=== PATIENT | female | born 1960 | race African-American/Black ===

== ENCOUNTER → 2016-12-08 | Outpatient (CLI) | payer OTHER ==
--- NOTE | 2016-12-08 16:57 | WOMENS IMAGING REPORT ---
EXAM DESCRIPTION: BILAT DIAGNOSTIC MAMMO W/CAD; U/S BREAST UNILAT LIMITED COMPLETED DATE/TIME: 12/08/2016 4:35 pm; 12/08/2016 2:03 pm REASON FOR STUDY: N64.52; RT BREAST DISCHARGE N64.52 NIPPLE DISCHARGE bloody nipple discharge COMPARISON: Mammograms 10/14/2008 TECHNIQUE: Standard craniocaudal and mediolateral oblique views of each breast recorded using digita l acquisition. Additional right breast 90 mediolateral view, right breast cone compression in the retroareolar nancy on, and right breast ultrasound were performed. LIMITATIONS: None. FINDINGS: RIGHT BREAST MASSES: No suspicious masses. CALCIFICATIONS: No new or suspicious calcifications. ARCHITECTURAL DISTORTION: None. DEVELOPING DENSITY: None. ASYMMETRY: None noted. OTHER: No other significant findings. LEFT BREAST MASSES: No suspicious masses. CALCIFICATIONS: No new or suspicious calcifications. ARCHITECTURAL DISTORTION: None. DEVELOPING DENSITY: None. ASYMMETRY: None noted. OTHER: No other significant finding. Read with the assistance of CAD: .[facility] - R2 Cenova Version 1.3 .[facility] Imaging - R2 Cenova Version 1.3 .[facility] Imaging - R2 Cenova Version 2.4 .[facility] - R2 Cenova Version 2.4 .[facility] - R2 Missile Technician Version 9.2 Right breast ultrasound: Patient presents with bloody right nipple discharge. Few retroareolar ducts are identified without f illing defects worrisome for papilloma. No discrete solid lesions in the right retroareolar region. IMPRESSION: Negative right breast mammogram and ultrasound in the setting of bloody nipple discharge . Patient requires further imaging, either with ductogram for bilateral breast MRI with contrast. No mammographic evidence malignancy left breast. BREAST DENSITY: c. The breasts are heterogeneously dense, which may obscure small masses. BIRAD: 0 Incomplete: Needs additional imaging evaluation and/or prior mammograms for comparison. RECOMMENDATION: RECOMMENDED FOLLOW UP: The patient either needs a bilateral breast MRI, or a right b reast ductogram while the patient is still able to express bloody nipple discharge. Please call [facility] at at [phone] and ask for Lio or Shahana to schedule the ductogram. SPECIFIC INTERVENTION/IMAGING/CONSULTATION RECOMMENDED:As above COMMUNICATION:Patient notified by letter COMMENT: The patient has been notified of the results by letter per SA requirements. Additional no tification policies are in place for contacting patient with suspicious or incomplete findings. Quality ID #[id number]: The [employer] recommends an annual screening mammogram for women aged 40 years or over. This facility utilizes a reminder system to ensure that all patients receive reminder letters, and/or direct phone calls for appointments. This includes reminders for routine scr eening mammograms, diagnostic mammograms, or other Breast Imaging Interventions when appropriate. Th is patient will be placed in the appropriate reminder system. The [employer] (ACR) has developed recommendations for screening MRI of the breast s in certain patient populations, to be used in conjunction with mammography. Breast MRI surveillanc e may be appropriate for women with more than 20% lifetime risk of developing breast cancer as deter mined by genetic testing, significant family history of the disease, or history of mantle radiation f or Hodgkins Disease. ACR Practice Guidelines 2008. TECHNICAL DOCUMENTATION: FINDING NUMBER: (1) ASSESSMENT: (1) JOB ID: [id number] [employer]- All Rights Reserved
--- NOTE | 2016-12-08 16:57 | WOMENS IMAGING REPORT ---
EXAM DESCRIPTION: BILAT DIAGNOSTIC MAMMO W/CAD; U/S BREAST UNILAT LIMITED COMPLETED DATE/TIME: 12/08/2016 4:35 pm; 12/08/2016 2:03 pm REASON FOR STUDY: N64.52; RT BREAST DISCHARGE N64.52 NIPPLE DISCHARGE bloody nipple discharge COMPARISON: Mammograms 10/14/2008 TECHNIQUE: Standard craniocaudal and mediolateral oblique views of each breast recorded using digita l acquisition. Additional right breast 90 mediolateral view, right breast cone compression in the retroareolar nancy on, and right breast ultrasound were performed. LIMITATIONS: None. FINDINGS: RIGHT BREAST MASSES: No suspicious masses. CALCIFICATIONS: No new or suspicious calcifications. ARCHITECTURAL DISTORTION: None. DEVELOPING DENSITY: None. ASYMMETRY: None noted. OTHER: No other significant findings. LEFT BREAST MASSES: No suspicious masses. CALCIFICATIONS: No new or suspicious calcifications. ARCHITECTURAL DISTORTION: None. DEVELOPING DENSITY: None. ASYMMETRY: None noted. OTHER: No other significant finding. Read with the assistance of CAD: .[facility] - R2 Cenova Version 1.3 .[facility] Imaging - R2 Cenova Version 1.3 .[facility] Imaging - R2 Cenova Version 2.4 .[facility] - R2 Cenova Version 2.4 .[facility] - R2 Sugar Drier Version 9.2 Right breast ultrasound: Patient presents with bloody right nipple discharge. Few retroareolar ducts are identified without f illing defects worrisome for papilloma. No discrete solid lesions in the right retroareolar region. IMPRESSION: Negative right breast mammogram and ultrasound in the setting of bloody nipple discharge . Patient requires further imaging, either with ductogram for bilateral breast MRI with contrast. No mammographic evidence malignancy left breast. BREAST DENSITY: c. The breasts are heterogeneously dense, which may obscure small masses. BIRAD: 0 Incomplete: Needs additional imaging evaluation and/or prior mammograms for comparison. RECOMMENDATION: RECOMMENDED FOLLOW UP: The patient either needs a bilateral breast MRI, or a right b reast ductogram while the patient is still able to express bloody nipple discharge. Please call [facility] at at [phone] and ask for Lio or Shahana to schedule the ductogram. SPECIFIC INTERVENTION/IMAGING/CONSULTATION RECOMMENDED:As above COMMUNICATION:Patient notified by letter COMMENT: The patient has been notified of the results by letter per SA requirements. Additional no tification policies are in place for contacting patient with suspicious or incomplete findings. Quality ID #[id number]: The [employer] recommends an annual screening mammogram for women aged 40 years or over. This facility utilizes a reminder system to ensure that all patients receive reminder letters, and/or direct phone calls for appointments. This includes reminders for routine scr eening mammograms, diagnostic mammograms, or other Breast Imaging Interventions when appropriate. Th is patient will be placed in the appropriate reminder system. The [employer] (ACR) has developed recommendations for screening MRI of the breast s in certain patient populations, to be used in conjunction with mammography. Breast MRI surveillanc e may be appropriate for women with more than 20% lifetime risk of developing breast cancer as deter mined by genetic testing, significant family history of the disease, or history of mantle radiation f or Hodgkins Disease. ACR Practice Guidelines 2008. TECHNICAL DOCUMENTATION: FINDING NUMBER: (1) ASSESSMENT: (1) JOB ID: [id number] [employer]- All Rights Reserved
== END ==
LOC: WI 12:50
PROVIDERS: ATTEND Obstetrics & Gynecology
DX: N64.52 Nipple discharge (principal)
CPT/HCPCS: 76642; G0204; 77066

== ENCOUNTER 2017-08-26 08:37 | Emergency (ER) | payer OTHER ==
[2017-08-26] MEDS ORDERED: IPRATROPIUM/ALBUTEROL 0.5-2.5 MG/3 ML AMPUL NEB ONE (09:38)
--- NOTE | 2017-08-26 10:12 | RADIOLOGY REPORT (SQ) ---
EXAM DESCRIPTION: CHEST PA/LAT COMPLETED DATE/TIME: 08/26/2017 9:59 am REASON FOR STUDY: sob COMPARISON: Chest films 03/04/2013, 07/31/2014, 05/18/2015 EXAM PARAMETERS: NUMBER OF VIEWS: two views TECHNIQUE: Digital Frontal and Lateral radiographic views of the chest acquired. RADIATION DOSE: NA LIMITATIONS: none FINDINGS: LUNGS AND PLEURA: No opacities, masses or pneumothorax. No pleural effusion. MEDIASTINUM AND HILAR STRUCTURES: No masses or contour abnormalities. HEART AND VASCULAR STRUCTURES: Heart normal size. No evidence for failure. BONES: No acute findings. HARDWARE: None in the chest. OTHER: No other significant finding. IMPRESSION: NO SIGNIFICANT RADIOGRAPHIC FINDING IN THE CHEST. TECHNICAL DOCUMENTATION: JOB ID: [id number] [employer]- All Rights Reserved Reading location - IP/workstation name: [email or web address]
[2017-08-26] MEDS ORDERED: ALBUTEROL SULFATE HFA (90 MCG/PUFF) 8 GM MDI (1 MDI/ER DISP) IH ONE (10:31)
[2017-08-26] MEDS ORDERED: AZITHROMYCIN 250 MG TABLET PO ONE (10:31)
[2017-08-26] MEDS ORDERED: PREDNISONE 20 MG TABLET PO ONE (10:31)
--- NOTE | 2017-08-26 10:35 | ER Document Report ---
ED General - General Chief Complaint: Cold Symptoms Stated Complaint: COUGH Time Seen by Provider: 08/26/17 08:48 TRAVEL OUTSIDE OF THE [place] IN LAST 30 DAYS: No - HPI Patient complains to provider of: Cough Notes: Patient coming in for cough or sputum ongoing for approximately 1 week subjective fevers. Patient also states pain with coughing. Pain in her chest. Sharp and achy. Patient resting has no pain in her chest. Patient denies any recent travel denies any hormone replacement. Patient resting comfortably upon my evaluation. - Related Data Allergies/Adverse Reactions: codeine [Codeine] Allergy (Severe, Verified 08/26/17 08:41) hives,difficulty breathing hydromorphone HCl [From Dilaudid] Allergy (Severe, Verified 08/26/17 08:41) chest tight iodine [Iodine] Allergy (Severe, Verified 08/26/17 08:41) Hives morphine [Morphine] Allergy (Severe, Verified 08/26/17 08:41) hives,difficulty breathing povidone-iodine [From Betadine] Allergy (Severe, Verified 08/26/17 08:41) Hives Soap [From Betadine] Allergy (Severe, Verified 08/26/17 08:41) Hives Sulfa (Sulfonamide Antibiotics) Allergy (Severe, Verified 08/26/17 08:41) hives,tight chest aspirin [Aspirin] Allergy (Unknown, Verified 08/26/17 08:41) Hives guaifenesin [From Entex] Allergy (Unknown, Verified 08/26/17 08:41) Hives, chest tightness phenylephrine HCl [From Entex] Allergy (Unknown, Verified 08/26/17 08:41) hives, chest tightness phenylpropanolamine [From Entex] Allergy (Unknown, Verified 08/26/17 08:41) pseudoephedrine tannate [From Entex] Allergy (Unknown, Verified 08/26/17 08:41) seafood Allergy (Severe, Uncoded 08/26/17 08:41) swell,hives,can't breathe Pinapple Allergy (Uncoded 08/26/17 08:41) hives,difficulty breathing watermelon Allergy (Uncoded 08/26/17 08:41) hives,difficulty breathing Past Medical History - Social History Smoking Status: Never Smoker Chew tobacco use (# tins/day): No Frequency of alcohol use: None Drug Abuse: None Family History: Reviewed & Not Pertinent Patient has suicidal ideation: No Patient has homicidal ideation: No - Past Medical History Cardiac Medical History: Denies: Hx Coronary Artery Disease, Hx Heart Attack, Hx Hypertension Pulmonary Medical History: Reports: Hx Bronchitis, Hx Pneumonia Denies: Hx Asthma, Hx COPD Neurological Medical History: Reports: Hx Migraine. Denies: Hx Cerebrovascular Accident, Hx Seizures Renal/ Medical History: Reports: Hx Ectopic . 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, Reports Hx Musculoskeletal Deformity Past Surgical History: Reports: Hx Appendectomy, Hx Cholecystectomy, Hx Hysterectomy, Hx Orthopedic Surgery - left knee scope, Hx Tubal Ligation, Hx Umbilical Hernia - Immunizations Hx Diphtheria, Pertussis, Tetanus Vaccination: Yes Hx Pneumococcal Vaccination: 05/30/11 Review of Systems - Review of Systems Constitutional: No symptoms reported EENT: No symptoms reported Cardiovascular: Chest pain Respiratory: Cough, Short of breath, Wheezing Gastrointestinal: No symptoms reported Genitourinary: No symptoms reported Female Genitourinary: No symptoms reported Musculoskeletal: No symptoms reported Skin: No symptoms reported Hematologic/Lymphatic: No symptoms reported Neurological/Psychological: No symptoms reported -: Yes All other systems reviewed and negative Physical Exam - Vital signs Vitals: Temp Pulse Resp BP Pulse Ox 98.6 F 79 18 135/55 H 96 08/26/17 08:38 08/26/17 08:38 08/26/17 08:38 08/26/17 08:38 08/26/17 08:38 Interpretation: Normal - General General appearance: Appears well, Alert - HEENT Head: Normocephalic, Atraumatic Eyes: Normal Pupils: PERRL - Respiratory Respiratory status: No respiratory distress Chest status: Nontender Breath sounds: Wheezing Chest palpation: Normal - Cardiovascular Rhythm: Regular Heart sounds: Normal auscultation Murmur: No - Abdominal Inspection: Normal Distension: No distension Bowel sounds: Normal Tenderness: Nontender Organomegaly: No organomegaly - Back Back: Normal, Nontender - Extremities General upper extremity: Normal inspection, Nontender, Normal color, Normal ROM , Normal temperature General lower extremity: Normal inspection, Nontender, Normal color, Normal ROM , Normal temperature, Normal weight bearing. No: Marylou's sign - Neurological Neuro grossly intact: Yes Cognition: Normal Orientation: AAOx4 [place] Coma Scale Eye Opening: Spontaneous [place] Coma Scale Verbal: Oriented [place] Coma Scale Motor: Obeys Commands [place] Coma Scale Total: 15 Speech: Normal Motor strength normal: LUE, RUE, LLE, RLE Sensory: Normal - Psychological Associated symptoms: Normal affect, Normal mood - Skin Skin Temperature: Warm Skin Moisture: Dry Skin Color: Normal Course - Re-evaluation Re-evalutation: 08/26/17 14:59 Patient feeling better after bronchodilator therapy. Concerned about underlying bronchitis chest x-ray and EKG does not show critical pathology at this time. Patient will be treated with bronchodilators and steroids and azithromycin. Patient states understanding will be discharged home. - Vital Signs Vital signs: Temp Pulse Resp BP Pulse Ox 98.3 F 71 15 125/64 98 08/26/17 10:45 08/26/17 10:45 08/26/17 10:45 08/26/17 10:45 08/26/17 10:45 Discharge - Discharge Clinical Impression: Bronchitis Condition: Good Disposition: HOME, SELF-CARE Instructions: Bronchitis ([facility]) Additional Instructions: Your chest x-ray does not show any signs of pneumonia. Please take medications as prescribed use your inhaler 2 puffs a very 4 hours for the next 5 days take steroids as prescribed take the Zithromax as prescribed return to ER symptoms worsen. Prescriptions: Azithromycin [Zithromax 250 mg Tablet] 250 mg PO DAILY #4 tablet Prednisone [Deltasone 20 mg Tablet] 2 tab PO DAILY 4 Days tablet Forms: Return to Work Referrals: GWEN HEAD MD [Primary Care Provider] - Follow up as needed
[2017-08-26 10:51] VITALS: BP 125/64
--- NOTE | 2017-08-26 13:45 | EKG REPORT ---
SEVERITY:- BORDERLINE ECG - SINUS RHYTHM BORDERLINE T ABNORMALITIES, ANT-LAT LEADS : Confirmed by: Charlie Sun MD 26-Aug-2017 13:45:00
== END 2017-08-26 10:51 | disposition home or self-care (01) ==
LOC: ER 08:37
DX: J40 Bronchitis, not specified as acute or chronic (principal); R05 Cough; R50.9 Fever, unspecified; R07.9 Chest pain, unspecified
CPT/HCPCS: 93005; 94640; 99283; 71046; 93010; J7512; J3490; J7620

== ENCOUNTER → 2018-08-29 | Outpatient (CLI) | payer OTHER ==
--- NOTE | 2018-08-29 13:43 | WOMENS IMAGING REPORT ---
EXAM DESCRIPTION: BILAT DIAGNOSTIC MAMMO W/CAD; U/S BREAST UNILAT LIMITED COMPLETED DATE/TIME: 08/29/2018 11:39 am; 08/29/2018 1:11 pm REASON FOR STUDY: N64.52 NIPPLE DISCHARGE, N64.4 MASTODYNIA; N64.52 RIGHT BREAST N64.52 NIPPLE DISC HARGE COMPARISON: 12/08/2016 and 10/14/2008. TECHNIQUE: Standard craniocaudal and mediolateral oblique views of each breast recorded using digita l acquisition. Additional true lateral image of the right breast acquired. LIMITATIONS: None. FINDINGS: RIGHT BREAST MASSES: No suspicious masses. CALCIFICATIONS: No new or suspicious calcifications. ARCHITECTURAL DISTORTION: None. DEVELOPING DENSITY: None. ASYMMETRY: None noted. OTHER: No other significant findings. LEFT BREAST MASSES: No suspicious masses. CALCIFICATIONS: No new or suspicious calcifications. ARCHITECTURAL DISTORTION: None. DEVELOPING DENSITY: None. ASYMMETRY: None noted. OTHER: No other significant finding. Read with the assistance of CAD: .[facility] - R2 Cenova Version 1.3 .[facility] Imaging - R2 Cenova Version 2.1 .[facility] Imaging - R2 Cenova Version 2.4 .[facility] - R2 Cenova Version 2.4 .[facility] - R2 Smokehouse Worker Version 9.2 BREAST ULTRASOUND: TECHNIQUE: Static and dynamic grayscale images acquired of the right breast in the specific areas of clinical/mammographic concern. Selected color Doppler images recorded. ELASTOGRAPHY PERFORMED: No. LIMITATIONS: None. FINDINGS: MASS: No mass identified. There are several prominent moderately dilated ducts in the retroareolar a nd anterior breast. Normal glandular tissue. ELASTOGRAPHY CHARACTERISTICS: Not applicable. OTHER: No other significant finding. IMPRESSION: Stable mammographic appearance of both breasts. No worrisome mammographic findings. Ul trasound of the right breast demonstrates several dilated ducts. No discrete mass identified. The p atient has a history of previous ductogram performed at [facility] (03/03/2017) w ith finding of irregular filling defect. Biopsy was subsequently performed at [facility] Modesta nolasco. The patient reportedly has persistent bloody discharge. Given the clinical finding, further evaluation with ductogram and possibly MRI should be considered. BREAST DENSITY: c. The breasts are heterogeneously dense, which may obscure small masses. BIRAD: 0 Incomplete: Needs additional imaging evaluation and/or prior mammograms for comparison. RECOMMENDATION: RECOMMENDED FOLLOW UP: Birads 0: Mammographic and Ultrasound imaging did not solve t he problem. SPECIFIC INTERVENTION/IMAGING/CONSULTATION RECOMMENDED:Based on clinical presentation, consider galac tography and possibly MRI. COMMUNICATION:The imaging findings were not discussed with the patient. Her referring provider has be en notified of the findings. COMMENT: The patient has been notified of the results by letter per SA requirements. Additional no tification policies are in place for contacting patient with suspicious or incomplete findings. Quality ID #225: The [employer] recommends an annual screening mammogram for women aged 40 years or over. This facility utilizes a reminder system to ensure that all patients receive reminder letters, and/or direct phone calls for appointments. This includes reminders for routine scr eening mammograms, diagnostic mammograms, or other Breast Imaging Interventions when appropriate. Th is patient will be placed in the appropriate reminder system. The [employer] (ACR) has developed recommendations for screening MRI of the breast s in certain patient populations, to be used in conjunction with mammography. Breast MRI surveillanc e may be appropriate for women with more than 20% lifetime risk of developing breast cancer as deter mined by genetic testing, significant family history of the disease, or history of mantle radiation f or Hodgkins Disease. ACR Practice Guidelines 2008. TECHNICAL DOCUMENTATION: FINDING NUMBER: (1) ASSESSMENT: (1) JOB ID: [id number] [employer]- All Rights Reserved Reading location - IP/workstation name: [email or web address]
--- NOTE | 2018-08-29 13:43 | WOMENS IMAGING REPORT ---
EXAM DESCRIPTION: BILAT DIAGNOSTIC MAMMO W/CAD; U/S BREAST UNILAT LIMITED COMPLETED DATE/TIME: 08/29/2018 11:39 am; 08/29/2018 1:11 pm REASON FOR STUDY: N64.52 NIPPLE DISCHARGE, N64.4 MASTODYNIA; N64.52 RIGHT BREAST N64.52 NIPPLE DISC HARGE COMPARISON: 12/08/2016 and 10/14/2008. TECHNIQUE: Standard craniocaudal and mediolateral oblique views of each breast recorded using digita l acquisition. Additional true lateral image of the right breast acquired. LIMITATIONS: None. FINDINGS: RIGHT BREAST MASSES: No suspicious masses. CALCIFICATIONS: No new or suspicious calcifications. ARCHITECTURAL DISTORTION: None. DEVELOPING DENSITY: None. ASYMMETRY: None noted. OTHER: No other significant findings. LEFT BREAST MASSES: No suspicious masses. CALCIFICATIONS: No new or suspicious calcifications. ARCHITECTURAL DISTORTION: None. DEVELOPING DENSITY: None. ASYMMETRY: None noted. OTHER: No other significant finding. Read with the assistance of CAD: .[facility] - R2 Cenova Version 1.3 .[facility] Imaging - R2 Cenova Version 2.1 .[facility] Imaging - R2 Cenova Version 2.4 .[facility] - R2 Cenova Version 2.4 .[facility] - R2 Date Night Caregiver Version 9.2 BREAST ULTRASOUND: TECHNIQUE: Static and dynamic grayscale images acquired of the right breast in the specific areas of clinical/mammographic concern. Selected color Doppler images recorded. ELASTOGRAPHY PERFORMED: No. LIMITATIONS: None. FINDINGS: MASS: No mass identified. There are several prominent moderately dilated ducts in the retroareolar a nd anterior breast. Normal glandular tissue. ELASTOGRAPHY CHARACTERISTICS: Not applicable. OTHER: No other significant finding. IMPRESSION: Stable mammographic appearance of both breasts. No worrisome mammographic findings. Ul trasound of the right breast demonstrates several dilated ducts. No discrete mass identified. The p atient has a history of previous ductogram performed at [facility] (03/03/2017) w ith finding of irregular filling defect. Biopsy was subsequently performed at [facility] Modesta nolasco. The patient reportedly has persistent bloody discharge. Given the clinical finding, further evaluation with ductogram and possibly MRI should be considered. BREAST DENSITY: c. The breasts are heterogeneously dense, which may obscure small masses. BIRAD: 0 Incomplete: Needs additional imaging evaluation and/or prior mammograms for comparison. RECOMMENDATION: RECOMMENDED FOLLOW UP: Birads 0: Mammographic and Ultrasound imaging did not solve t he problem. SPECIFIC INTERVENTION/IMAGING/CONSULTATION RECOMMENDED:Based on clinical presentation, consider galac tography and possibly MRI. COMMUNICATION:The imaging findings were not discussed with the patient. Her referring provider has be en notified of the findings. COMMENT: The patient has been notified of the results by letter per SA requirements. Additional no tification policies are in place for contacting patient with suspicious or incomplete findings. Quality ID #225: The [employer] recommends an annual screening mammogram for women aged 40 years or over. This facility utilizes a reminder system to ensure that all patients receive reminder letters, and/or direct phone calls for appointments. This includes reminders for routine scr eening mammograms, diagnostic mammograms, or other Breast Imaging Interventions when appropriate. Th is patient will be placed in the appropriate reminder system. The [employer] (ACR) has developed recommendations for screening MRI of the breast s in certain patient populations, to be used in conjunction with mammography. Breast MRI surveillanc e may be appropriate for women with more than 20% lifetime risk of developing breast cancer as deter mined by genetic testing, significant family history of the disease, or history of mantle radiation f or Hodgkins Disease. ACR Practice Guidelines 2008. TECHNICAL DOCUMENTATION: FINDING NUMBER: (1) ASSESSMENT: (1) JOB ID: [id number] [employer]- All Rights Reserved Reading location - IP/workstation name: [email or web address]
== END ==
LOC: WI 11:12
PROVIDERS: ATTEND Surgery
DX: N64.52 Nipple discharge (principal)
CPT/HCPCS: 76642; 77066

== ENCOUNTER → 2019-02-26 | Outpatient (CLI) | payer OTHER ==
--- NOTE | 2019-02-26 16:20 | RADIOLOGY REPORT (SQ) ---
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 NUMBER OF VIEWS: Five views including obliques. TECHNIQUE: AP, lateral, oblique, and sacral radiographic images acquired of the lumbar spine. LIMITATIONS: None. FINDINGS: MINERALIZATION: Normal. SEGMENTATION: Normal. No transitional anatomy. ALIGNMENT: Normal. VERTEBRAE: Maintained height. No fracture or worrisome bone lesion. DISCS: Preserved height. No significant osteophytes or end plate irregularity. POSTERIOR ELEMENTS: Pedicles and facets are intact. No pars defect or posterior arch defects. HARDWARE: None in the spine. PARASPINAL SOFT TISSUES: Normal. PELVIS: Intact as visualized. No fractures or worrisome bone lesions. SI joints intact. OTHER: No other significant finding. IMPRESSION: NORMAL 5 VIEW LUMBAR SPINE. TECHNICAL DOCUMENTATION: JOB ID: [id number] [employer]- All Rights Reserved Reading location - IP/workstation name: [email or web address]
--- NOTE | 2019-02-26 16:20 | RADIOLOGY REPORT (SQ) ---
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 NUMBER OF VIEWS: Four views. TECHNIQUE: AP, lateral, and both oblique radiographic images acquired of the right knee. LIMITATIONS: None. FINDINGS: MINERALIZATION: Normal. BONES: No acute fracture or dislocation. No worrisome bone lesions. No significant osteophytes. JOINT: No effusion. No chondrocalcinosis. OTHER: No other significant finding. IMPRESSION: NEGATIVE STUDY OF THE RIGHT KNEE. NO EXPLANATION FOR PAIN. TECHNICAL DOCUMENTATION: JOB ID: [id number] [employer]- All Rights Reserved Reading location - IP/workstation name: [email or web address]
--- NOTE | 2019-02-26 16:21 | RADIOLOGY REPORT (SQ) ---
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 NUMBER OF VIEWS: Two views. TECHNIQUE: AP pelvis and additional frog-leg view of the right hip. LIMITATIONS: None. FINDINGS: MINERALIZATION: Normal. RIGHT HIP: No fracture or dislocation. No worrisome bone lesions. No contour deformity. No joint sp jan narrowing. LEFT HIP: No fracture or dislocation. No worrisome bone lesions. PUBIS AND ISCHIUM: No fracture. PELVIS: No fracture. SACRUM: No fracture or dislocation. No worrisome bone lesions. LOWER LUMBAR SPINE: No fracture or dislocation. No worrisome bone lesions. No significant disc disea se. SOFT TISSUES: No findings. OTHER: No other significant finding. IMPRESSION: NEGATIVE STUDY OF THE RIGHT HIP. NO EXPLANATION FOR PAIN. TECHNICAL DOCUMENTATION: JOB ID: [id number] [employer]- All Rights Reserved Reading location - IP/workstation name: [email or web address]
== END ==
LOC: OD 15:26
PROVIDERS: ATTEND Obstetrics & Gynecology
DX: M51.36 Other intervertebral disc degeneration, lumbar region (principal); M16.11 Unilateral primary osteoarthritis, right hip; M17.11 Unilateral primary osteoarthritis, right knee
CPT/HCPCS: 72110

== ENCOUNTER → 2019-06-20 | Outpatient (CLI) | payer OTHER ==
--- NOTE | 2019-06-20 09:08 | RADIOLOGY REPORT (SQ) ---
EXAM DESCRIPTION: CT ABD/PELVIS ORAL ONLY COMPLETED DATE/TIME: 06/20/2019 8:47 am REASON FOR STUDY: R10.9 UNSPECIFIED ABDOMINAL PAIN R10.9 UNSPECIFIED ABDOMINAL PAIN COMPARISON: 05/18/2015 TECHNIQUE: CT scan of the abdomen and pelvis performed with oral contrast and no intravenous contras t. Images reviewed with lung, soft tissue, and bone windows. Reconstructed coronal and sagittal MPR i mages reviewed. All images stored on PACS. All CT scanners at this facility use dose modulation, iterative reconstruction, and/or weight based d osing when appropriate to reduce radiation dose to as low as reasonably achievable (ALARA). [facility]: Dose Right [facility]: CareDose [facility]: Dose Right [facility]: Teradose 4D [facility]: [employer] RADIATION DOSE: CT Rad equipment meets quality standard of care and radiation dose reduction techniq ues were employed. CTDIvol: 28.2 mGy. DLP: 1364 mGy-cm.mGy. LIMITATIONS: None. FINDINGS: LOWER CHEST: No significant findings. No nodules or infiltrates. NON-CONTRASTED LIVER, SPLEEN, ADRENALS: Evaluation limited by lack of IV contrast. No identified sign ificant masses. The patient has developed a 1.3 cm hypoattenuating lesion in the left lobe adjacent to the falciform ligament. Hounsfield units are under 1 consistent with simple cyst. PANCREAS: No masses. No peripancreatic inflammatory changes. GALLBLADDER: Surgically absent. RIGHT KIDNEY AND URETER: No solid masses. No significant calcification. No hydronephrosis or hydroure ter. LEFT KIDNEY AND URETER: No solid masses. No significant calcification. No hydronephrosis or hydrouret er. AORTA AND RETROPERITONEUM: No aneurysm. No retroperitoneal masses or adenopathy. BOWEL AND PERITONEAL CAVITY: No obvious masses or inflammatory changes. No free fluid. APPENDIX: Surgically absent. PELVIS, BLADDER, AND ABDOMINAL WALL: No abnormal pelvic masses. No abdominal wall hernias. Bladder un remarkable. BONES: No significant findings. OTHER: No other significant finding. IMPRESSION: NO SIGNIFICANT OR ACUTE ABDOMINAL PROCESS. TECHNICAL DOCUMENTATION: JOB ID: [id number] Quality ID # [id number]: Final reports with documentation of one or more dose reduction techniques (e.g., Au tomated exposure control, adjustment of the mA and/or kV according to patient size, use of iterative reconstruction technique) 2010 test company- All Rights Reserved Reading location - IP/workstation name: [email or web address]
== END ==
LOC: RAD 08:29
PROVIDERS: ATTEND Surgery
DX: R10.9 Unspecified abdominal pain (principal)
CPT/HCPCS: 74176

== ENCOUNTER → 2019-08-15 | Outpatient (CLI) | payer OTHER ==
--- NOTE | 2019-08-16 11:08 | WOMENS IMAGING REPORT ---
EXAM DESCRIPTION: BILAT DIAGNOSTIC MAMMO W/CAD COMPLETED DATE/TIME: 08/15/2019 10:21 am REASON FOR STUDY: N64.52 NIPPLE DISCHARGE N64.52 NIPPLE DISCHARGE persistent right breast nipple di scharge and pain. Patient has had a prior ductogram with a filling defect which was biopsied at [facility]. Persistent nipple discharge and pain. COMPARISON: 08/29/2018, 12/08/2016 EXAM PARAMETERS: Standard craniocaudal and mediolateral oblique views of each breast recorded using digital acquisition. . Read with the assistance of CAD: .[facility] - [employer] Inspector Version 9.2 LIMITATIONS: None. FINDINGS: RIGHT BREAST MASSES: Mildly dilated subareolar ducts are stable from previous examination. CALCIFICATIONS: Few scattered calcifications are stable. ARCHITECTURAL DISTORTION: None. ASYMMETRY: None noted. OTHER: Biopsy marker and the right upper outer breast is unchanged. LEFT BREAST MASSES: No suspicious masses. CALCIFICATIONS: No new or suspicious calcifications. ARCHITECTURAL DISTORTION: None. ASYMMETRY: None noted. OTHER: No other significant finding. IMPRESSION: No mammographic evidence of malignancy. No significant interval change. If there is pe rsistent nipple discharge from the right breast, further evaluation with ductogram or possibly MRI sh ould be considered. Further management of the patient's pain should be based on clinical evaluation. BREAST DENSITY: b. There are scattered areas of fibroglandular density. BIRAD: ASSESSMENT: 2 Benign findings. RECOMMENDATION: RECOMMENDED FOLLOW UP: Birads 1 or 2: The patient should resume routine screening . SPECIFIC INTERVENTION/IMAGING/CONSULTATION RECOMMENDED:No additional intervention/ imaging/consultati on needed at this time. COMMUNICATION:The negative/benign results were communicated to the patient. COMMENT: The patient has been notified of the results by letter per [place] requirements. Additional no tification policies are in place for contacting patient with suspicious or incomplete findings. Quality ID #225: The [employer] recommends an annual screening mammogram for women aged 40 years or over. This facility utilizes a reminder system to ensure that all patients receive reminder letters, and/or direct phone calls for appointments. This includes reminders for routine scr eening mammograms, diagnostic mammograms, or other Breast Imaging Interventions when appropriate. Th is patient will be placed in the appropriate reminder system. TECHNICAL DOCUMENTATION: FINDING NUMBER: (1) ASSESSMENT: (1) JOB ID: [id number] 2010 [employer]- All Rights Reserved Reading location - IP/workstation name: [email or web address]
== END ==
LOC: WI 11:00
PROVIDERS: ATTEND Surgery
DX: N64.52 Nipple discharge (principal)
CPT/HCPCS: 77066

== ENCOUNTER 2020-03-23 10:47 | Emergency (ER) | payer MEDICARE, OTHER ==
[2020-03-23] MEDS ORDERED: BENZONATATE 100 MG CAPSULE PO ONE (12:07)
[2020-03-23] MEDS ORDERED: IPRATROPIUM/ALBUTEROL 0.5-2.5 MG/3 ML AMPUL NEB ONE ×2 (12:07→16:30)
--- NOTE | 2020-03-23 12:09 | ER Document Report ---
ED Respiratory Problem - General Chief Complaint: Chest Tightness Stated Complaint: CHEST TIGHTNESS Time Seen by Provider: 03/23/20 11:40 Primary Care Provider: GWEN HEAD MD [Primary Care Provider] - Follow up as needed Notes: Patient is a 59-year-old female who presents the emergency department with a chief complaint of chest tightness with a cough. Patient was diagnosed with COVID-19 on March 12. She states that she continues to have a cough. She is not taking anything for the cough. Denies any diarrhea. He said her fevers stopped 2 days ago. She states that she started to have chest tightness 2 days ago when she started coughing. TRAVEL OUTSIDE OF THE [place] IN LAST 30 DAYS: No - Related Data Allergies/Adverse Reactions: codeine [Codeine] Allergy (Severe, Verified 03/23/20 11:50) hives,difficulty breathing hydromorphone HCl [From Dilaudid] Allergy (Severe, Verified 03/23/20 11:50) chest tight iodine [Iodine] Allergy (Severe, Verified 03/23/20 11:50) Hives morphine [Morphine] Allergy (Severe, Verified 03/23/20 11:50) hives,difficulty breathing povidone-iodine [From Betadine] Allergy (Severe, Verified 03/23/20 11:50) Hives Soap [From Betadine] Allergy (Severe, Verified 03/23/20 11:50) Hives Sulfa (Sulfonamide Antibiotics) Allergy (Severe, Verified 03/23/20 11:50) hives,tight chest aspirin [Aspirin] Allergy (Unknown, Verified 03/23/20 11:50) Hives guaifenesin [From Entex] Allergy (Unknown, Verified 03/23/20 11:50) Hives, chest tightness phenylephrine HCl [From Entex] Allergy (Unknown, Verified 03/23/20 11:50) hives, chest tightness phenylpropanolamine [From Entex] Allergy (Unknown, Verified 03/23/20 11:50) pseudoephedrine tannate [From Entex] Allergy (Unknown, Verified 03/23/20 11:50) seafood Allergy (Severe, Uncoded 03/23/20 11:50) swell,hives,can't breathe Pinapple Allergy (Uncoded 03/23/20 11:50) hives,difficulty breathing watermelon Allergy (Uncoded 03/23/20 11:50) hives,difficulty breathing Past Medical History - General Information source: Patient - Social History Smoking Status: Never Smoker Chew tobacco use (# tins/day): No Frequency of alcohol use: None Drug Abuse: None Family History: Reviewed & Not Pertinent - Past Medical History Cardiac Medical History: Denies: Hx Coronary Artery Disease, Hx Heart Attack, Hx Hypertension Pulmonary Medical History: Reports: Hx Bronchitis, Hx Pneumonia Denies: Hx Asthma, Hx COPD Neurological Medical History: Reports: Hx Migraine. Denies: Hx Cerebrovascular Accident, Hx Seizures Renal/ Medical History: Reports: Hx Ectopic . Denies: Hx Peritoneal Dialysis GI Medical History: Reports: Hx Irritable Bowel, Hx Colonoscopy Musculoskeletal Medical History: Reports Hx Arthritis - Left Knee, Reports Hx Musculoskeletal Deformity Past Surgical History: Reports: Hx Appendectomy, Hx Cholecystectomy, Hx Hysterectomy, Hx Orthopedic Surgery - left knee scope, Hx Tubal Ligation, Hx Umbilical Hernia - Immunizations Hx Diphtheria, Pertussis, Tetanus Vaccination: Yes Hx Pneumococcal Vaccination: 05/30/11 Review of Systems - Review of Systems Notes: REVIEW OF SYSTEMS: CONSTITUTIONAL : Denies recent unintentional weight loss. See HPI. EENT: Denies eye, ear, throat, or mouth pain, discharge, or symptoms. Denies nasal or sinus congestion. CARDIOVASCULAR: See HPI. RESPIRATORY: See HPI. GASTROINTESTINAL: Denies nausea, vomiting, and diarrhea. Denies abdominal pain. Denies constipation. GENITOURINARY: Denies difficulty urinating, burning, blood in urine, urgency or frequency. MUSCULOSKELETAL: Denies neck and back pain. Denies joint pain or swelling. SKIN: Denies rash, itchiness, or lesions HEMATOLOGIC : Denies easy bruising or bleeding. LYMPHATIC: Denies swollen, painful, enlarged glands. NEUROLOGICAL: Denies no numbness or tingling denies weakness. Denies headache. Denies altered mental status. Denies alteration in speech. PSYCHIATRIC: Denies stress, anxiety, alteration in sleep patterns, or depression. All other systems reviewed and negative. Physical Exam - Vital signs Vitals: Temp Pulse Resp BP Pulse Ox 98.0 F 81 16 133/85 H 97 03/23/20 11:00 03/23/20 11:00 03/23/20 11:00 03/23/20 11:00 03/23/20 11:00 - Notes Notes: PHYSICAL EXAMINATION: GENERAL: Appears well, healthy, well-nourished, no acute distress. HEAD: Normocephalic, atraumatic. EYES: PERRL, conjunctiva normal, all extraocular movements intact, sclera nonicteric ENT: Moist mucous membranes. NECK: Supple, no noticeable swelling, redness, rash. Normal range of motion. LUNGS: Diminished breath sounds throughout all lung graham. CARDIOVASCULAR: S1-S2, regular rate, regular rhythm. Radial pulses 2+, normal. ABDOMEN: Normoactive bowel sounds. Soft, nontender, no guarding, no rebound tenderness, and no masses palpated. EXTREMITIES: Normal strength and range of motion, no pitting or edema. No cyanosis. NEUROLOGICAL: Moves all extremities upon command. Strength 5/5 in all extremities. PSYCH: Normal mood, normal affect. SKIN: Warm, dry. No rash, lesions, ulcerations noted. Normal skin turgor. Course - Re-evaluation Re-evalutation: 03/23/20 13:46 Hematology is unremarkable. LFTs show a slightly elevated AST. Hematology is unremarkable. Troponin is 0.013. Will repeat second troponin for thoroughness. Patient states that she can breathe better after receiving a DuoNeb treatment and Tessalon Perles. 03/23/20 16:30 Repeat troponin is unremarkable. Patient will receive another DuoNeb treatment and she will go home. We will give her an albuterol inhaler. 03/23/20 17:27 Patient was up for discharge patient's oxygen saturation was 88% on room air. We rechecked and it went up to 92 to 96% on room air. Discussed this with Dr. Steven, my attending. Will walk the patient to reevaluate. 03/23/20 17:32 I walked the patient and the patient's oxygen saturation actually improved to 94-96 when she was walking. We will send the patient home with bhavna smith. At this time, I feel comfortable sending her home. She is in agreement with this plan. Follow-up precautions were given. Verbal discharge instructions were given to the patient. They verbalized understanding. They are stable for discharge. - Vital Signs Vital signs: Temp Pulse Resp BP Pulse Ox 98.0 F 81 16 133/85 H 97 03/23/20 11:00 03/23/20 11:00 03/23/20 11:00 03/23/20 11:00 03/23/20 11:00 - Laboratory Result Diagrams: 03/23/20 12:31 03/23/20 12:31 Laboratory results interpreted by me: 03/23/20 03/23/20 12:31 12:31 RDW 15.1 H Glucose 117 H AST 48 H Discharge - Discharge Clinical Impression: Cough, COVID-19 Condition: Stable Disposition: HOME, SELF-CARE Additional Instructions: You were seen today in the emergency department for a cough after being diagnosed with COVID-19. You can take the Tessalon Perles as needed for your cough. Take them as directed. You are also being sent home with an albuterol inhaler and spacer. You can take 1 puff every 4-6 hours for shortness of breath. Prescriptions: Benzonatate [Tessalon Perles 100 mg Capsule] 100 mg PO Q8HP PRN #40 capsule PRN Reason: Referrals: GWEN HEAD MD [Primary Care Provider] - Follow up as needed
--- NOTE | 2020-03-23 12:45 | RADIOLOGY REPORT (SQ) ---
EXAM DESCRIPTION: CHEST SINGLE VIEW IMAGES COMPLETED DATE/TIME: 03/23/2020 12:24 pm REASON FOR STUDY: Cough; diagnosed with COVID 03/12/20 COMPARISON: Chest radiograph 08/26/2017 NUMBER OF VIEWS: One view. TECHNIQUE: Single frontal radiographic view of the chest acquired. LIMITATIONS: None. FINDINGS: LUNGS AND PLEURA: Clear apart from subsegmental atelectasis at the lung bases. No pleural effusion or pneumothorax. MEDIASTINUM AND HILAR STRUCTURES: No masses. Contour normal. HEART AND VASCULAR STRUCTURES: Heart normal in size. Normal vasculature. BONES: No acute findings. HARDWARE: None in the chest. OTHER: No other significant finding. IMPRESSION: No acute pulmonary process. TECHNICAL DOCUMENTATION: JOB ID: [id number] 2010 [employer]- All Rights Reserved Reading location - IP/workstation name: [email or web address]
[2020-03-23 12:55] LABS: ABSOLUTE LYMPHOCYTES (AUTO) 1.2 10^3/uL (0.5-4.7); ABSOLUTE MONOCYTES (AUTO) 0.6 10^3/uL (0.1-1.4); ABSOLUTE NEUT (AUTO) 4.1 10^3/uL (1.7-8.2); BASOPHILS % (AUTO) 0.4 % (0-2); EOSINOPHILS % (AUTO) 0.6 % (0-6); HEMATOCRIT 36.1 % (36.0-47.0); HEMOGLOBIN 12.4 g/dL (12.0-15.5); LYMPHOCYTES % (AUTO) 19.7 % (13-45); MEAN CORPUSCULAR HEMOGLOBIN 27.6 pg (27.0-33.4); MEAN CORPUSCULAR HGB CONC 34.4 g/dL (32.0-36.0); MEAN CORPUSCULAR VOLUME 80 fl (80-97); MONOCYTES % (AUTO) 10.5 % (3-13); PLATELET COUNT 200 10^3/uL (150-450); RED BLOOD COUNT 4.51 10^6/uL (3.72-5.28); RED CELL DISTRIBUTION WIDTH 15.1 % (11.5-14.0); SEGMENTED NEUTROPHILS % (AUTO) 68.8 % (42-78); TOTAL CELLS COUNTED % (AUTO) 100 %
[2020-03-23 13:14] LABS: ALBUMIN 4.2 g/dL (3.5-5.0); ALKALINE PHOSPHATASE 63 U/L (38-126); ANION GAP 9 (5-19); ASPARTATE AMINO TRANSFERASE 48 U/L (14-36); BILIRUBIN,DIRECT 0.4 mg/dL (0.0-0.4); BILIRUBIN,TOTAL 0.7 mg/dL (0.2-1.3); BLOOD UREA NITROGEN 8 mg/dL (7-20); CALCIUM 9.1 mg/dL (8.4-10.2); CARBON DIOXIDE 29 mmol/L (22-30); CHLORIDE 103 mmol/L (98-107); GLUCOSE 117 mg/dL (75-110); POTASSIUM 3.8 mmol/L (3.6-5.0)
[2020-03-23] MEDS ORDERED: ALBUTEROL SULFATE HFA (90 MCG/PUFF) 8 GM MDI (1 MDI/ER DISP) IH PRN (16:30)
[2020-03-23 17:52] VITALS: BP 137/60
--- NOTE | 2020-03-23 19:15 | EKG REPORT ---
SEVERITY:- OTHERWISE NORMAL ECG - SINUS RHYTHM VENTRICULAR PREMATURE COMPLEX BORDERLINE LEFT AXIS DEVIATION : Confirmed by: John Urbano MD 23-Mar-2020 19:14:29
== END 2020-03-23 17:45 | disposition home or self-care (01) ==
LOC: ER 10:47
DX: U07.1 COVID-19 (principal); R07.89 Other chest pain; R05 Cough; R74.01 Elevation of levels of liver transaminase levels; Z87.01 Personal history of pneumonia (recurrent); Z88.6 Allergy status to analgesic agent; Z88.5 Allergy status to narcotic agent; Z88.3 Allergy status to other anti-infective agents; Z88.2 Allergy status to sulfonamides; Z88.8 Allergy status to other drugs, medicaments and biological substances; Z91.013 Allergy to seafood; Z91.018 Allergy to other foods
CPT/HCPCS: 94640 ×2; 99285; 36415; 85025; 80053; 84484; 71045; 93005; 93010; A9270 ×2; J3490

== ENCOUNTER 2020-04-30 20:16 | Emergency (ER) | payer MEDICARE, OTHER ==
[2020-04-30] MEDS ORDERED: PREDNISONE 20 MG TABLET PO ONE (20:49)
[2020-04-30] MEDS ORDERED: ALBUTEROL SULFATE 0.083% NEB 2.5 MG/3 ML AMPUL NEB ONE (20:49)
--- NOTE | 2020-04-30 20:51 | ER Document Report ---
ED Medical Screen (RME) - General Chief Complaint: Shortness Of Breath Stated Complaint: WHEEZING Time Seen by Provider: 04/30/20 20:42 Primary Care Provider: GWEN HEAD MD [Primary Care Provider] - Follow up as needed TRAVEL OUTSIDE OF THE [place] IN LAST 30 DAYS: No - HPI Notes: 04/30/20 20:50 60-year-old female with past medical history pertinent for chronic bronchitis to the emergency department with complaints of several days of wheezing, cough, shortness of breath, chest tightness. She states on March 12 she tested positive for Covid. She states that she quarantine for 21 days after that. She states that she tried to get in to see her physician when she started to develop symptoms of wheezing and her chronic bronchitis. However, they will not see her because of her Covid status. She denies any fevers or chills. She never been hospitalized or intubated for her chronic bronchitis. She does not smoke. Brief medical screening exam reveals decreased breath sounds throughout with no javier wheezing. She has intermittent dry cough. I performed a brief medical screening exam on the patient determined that the patient needs further evaluation and management by main side provider. I have placed initial orders to help expedite care. - Related Data Allergies/Adverse Reactions: codeine [Codeine] Allergy (Severe, Verified 03/23/20 11:50) hives,difficulty breathing hydromorphone HCl [From Dilaudid] Allergy (Severe, Verified 03/23/20 11:50) chest tight iodine [Iodine] Allergy (Severe, Verified 03/23/20 11:50) Hives morphine [Morphine] Allergy (Severe, Verified 03/23/20 11:50) hives,difficulty breathing povidone-iodine [From Betadine] Allergy (Severe, Verified 03/23/20 11:50) Hives Soap [From Betadine] Allergy (Severe, Verified 03/23/20 11:50) Hives Sulfa (Sulfonamide Antibiotics) Allergy (Severe, Verified 03/23/20 11:50) hives,tight chest aspirin [Aspirin] Allergy (Unknown, Verified 03/23/20 11:50) Hives guaifenesin [From Entex] Allergy (Unknown, Verified 03/23/20 11:50) Hives, chest tightness phenylephrine HCl [From Entex] Allergy (Unknown, Verified 03/23/20 11:50) hives, chest tightness phenylpropanolamine [From Entex] Allergy (Unknown, Verified 03/23/20 11:50) pseudoephedrine tannate [From Entex] Allergy (Unknown, Verified 03/23/20 11:50) seafood Allergy (Severe, Uncoded 03/23/20 11:50) swell,hives,can't breathe Pinapple Allergy (Uncoded 03/23/20 11:50) hives,difficulty breathing watermelon Allergy (Uncoded 03/23/20 11:50) hives,difficulty breathing Past Medical History - Social History Family history: DM, Malignancy - Past Medical History Cardiac Medical History: Denies: Hx Coronary Artery Disease, Hx Heart Attack, Hx Hypertension Pulmonary Medical History: Reports: Hx Bronchitis, Hx Pneumonia Denies: Hx Asthma, Hx COPD Neurological Medical History: Reports: Hx Migraine. Denies: Hx Cerebrovascular Accident, Hx Seizures Renal/ Medical History: Reports: Hx Ectopic . 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, Reports Hx Musculoskeletal Deformity Past Surgical History: Reports: Hx Appendectomy, Hx Cholecystectomy, Hx Hysterectomy, Hx Orthopedic Surgery - left knee scope, Hx Tubal Ligation, Hx Umbilical Hernia - Immunizations Hx Diphtheria, Pertussis, Tetanus Vaccination: Yes Physical Exam - Vital signs Vitals: Temp Pulse Resp BP Pulse Ox 98.1 F 66 16 146/53 H 97 04/30/20 20:22 04/30/20 20:22 04/30/20 20:22 04/30/20 20:22 04/30/20 20:22 Course - Vital Signs Vital signs: Temp Pulse Resp BP Pulse Ox 98.1 F 66 16 146/53 H 97 04/30/20 20:22 04/30/20 20:22 04/30/20 20:22 04/30/20 20:22 04/30/20 20:22 Doctor's Discharge - Discharge Referrals: GWEN HEAD MD [Primary Care Provider] - Follow up as needed
--- NOTE | 2020-04-30 21:19 | ER Document Report ---
ED General - General Chief Complaint: Shortness Of Breath Stated Complaint: WHEEZING Time Seen by Provider: 04/30/20 20:42 Primary Care Provider: GWEN HEAD MD [Primary Care Provider] - Follow up as needed TRAVEL OUTSIDE OF THE [place] IN LAST 30 DAYS: No - HPI Notes: 60-year-old female presents with wheezing. Patient states she has a history of chronic bronchitis and typically when the weather starts to change she has wheezing and nonproductive cough. States that this happens every year. She has been wheezing for the past couple of days. She is out of albuterol inhaler and nebulizer solution. Also states that she recently moved and cannot find her nebulizer, she is requesting a new prescription for 1. She states that her primary care doctor is refusing to see her in clinic because she had Covid in February. She denies fever, chills, chest pain or GI symptoms. She also states that Tessalon Perles typically help her cough as well. States that she knows that all she needs is a neb and she will feel a lot better. - Related Data Allergies/Adverse Reactions: codeine [Codeine] Allergy (Severe, Verified 03/23/20 11:50) hives,difficulty breathing hydromorphone HCl [From Dilaudid] Allergy (Severe, Verified 03/23/20 11:50) chest tight iodine [Iodine] Allergy (Severe, Verified 03/23/20 11:50) Hives morphine [Morphine] Allergy (Severe, Verified 03/23/20 11:50) hives,difficulty breathing povidone-iodine [From Betadine] Allergy (Severe, Verified 03/23/20 11:50) Hives Soap [From Betadine] Allergy (Severe, Verified 03/23/20 11:50) Hives Sulfa (Sulfonamide Antibiotics) Allergy (Severe, Verified 03/23/20 11:50) hives,tight chest aspirin [Aspirin] Allergy (Unknown, Verified 03/23/20 11:50) Hives guaifenesin [From Entex] Allergy (Unknown, Verified 03/23/20 11:50) Hives, chest tightness phenylephrine HCl [From Entex] Allergy (Unknown, Verified 03/23/20 11:50) hives, chest tightness phenylpropanolamine [From Entex] Allergy (Unknown, Verified 03/23/20 11:50) pseudoephedrine tannate [From Entex] Allergy (Unknown, Verified 03/23/20 11:50) seafood Allergy (Severe, Uncoded 03/23/20 11:50) swell,hives,can't breathe Pinapple Allergy (Uncoded 03/23/20 11:50) hives,difficulty breathing watermelon Allergy (Uncoded 03/23/20 11:50) hives,difficulty breathing Past Medical History - General Information source: Patient - Social History Smoking Status: Never Smoker Family History: Reviewed & Not Pertinent - Past Medical History Cardiac Medical History: Denies: Hx Coronary Artery Disease, Hx Heart Attack, Hx Hypertension Pulmonary Medical History: Reports: Hx Bronchitis, Hx Pneumonia Denies: Hx Asthma, Hx COPD Neurological Medical History: Reports: Hx Migraine. Denies: Hx Cerebrovascular Accident, Hx Seizures Renal/ Medical History: Reports: Hx Ectopic . Denies: Hx Peritoneal Dialysis GI Medical History: Reports: Hx Irritable Bowel, Hx Colonoscopy Musculoskeletal Medical History: Reports Hx Arthritis - Left Knee, Reports Hx Musculoskeletal Deformity Past Surgical History: Reports: Hx Appendectomy, Hx Cholecystectomy, Hx Hysterectomy, Hx Orthopedic Surgery - left knee scope, Hx Tubal Ligation, Hx Umbilical Hernia - Immunizations Hx Diphtheria, Pertussis, Tetanus Vaccination: Yes Hx Pneumococcal Vaccination: 05/30/11 Review of Systems - Review of Systems Constitutional: denies: See HPI, Fever EENT: No symptoms reported Cardiovascular: denies: Chest pain Respiratory: Cough, Short of breath, Wheezing Gastrointestinal: No symptoms reported Genitourinary: No symptoms reported Female Genitourinary: No symptoms reported Musculoskeletal: No symptoms reported Skin: No symptoms reported Hematologic/Lymphatic: No symptoms reported Neurological/Psychological: No symptoms reported Physical Exam - Vital signs Vitals: Temp Pulse Resp BP Pulse Ox 98.1 F 66 16 146/53 H 97 04/30/20 20:22 04/30/20 20:22 04/30/20 20:22 04/30/20 20:22 04/30/20 20:22 - General General appearance: Appears well, Alert In distress: None - HEENT Head: Normocephalic, Atraumatic Extraocular movements intact: Yes Pupils: PERRL - Respiratory Respiratory status: No: No respiratory distress, Labored, Tachypnea Breath sounds: Nonproductive cough, Wheezing - Faint end expiratory. No: Decreased air movement - Cardiovascular Rhythm: Regular Heart sounds: Normal auscultation - Abdominal Inspection: Obese - Extremities General lower extremity: No: Edema - Neurological Neuro grossly intact: Yes Cognition: Normal Orientation: AAOx4 - Psychological Associated symptoms: Normal affect - Skin Skin Temperature: Warm Course - Re-evaluation Re-evalutation: 60-year-old female with history of chronic bronchitis here with worsening of her chronic symptoms. On exam she is well-appearing, hemodynamically stable, no respiratory distress, speaking in full sentences, there is faint and expiratory wheezing. She is already receiving an albuterol neb prior to my evaluation, though somewhat underdosed at 2.5 mg. Will order full dose DuoNeb. She is already received steroids. She had Covid in February which is almost 3 months ago at this point, I do not suspect this represents sequela of Covid. Likely has any worsening symptoms given that she is out of her medications. Chest x- ray has been obtained, awaiting final read. We will continue symptomatic control. 04/30/20 22:40 Chest x-ray is without infiltrate 04/30/20 22:50 Patient reports she is feeling much better. Will prescribe albuterol MDI, DuoNeb nebulizer, nebulizer equipment and Tessalon Perles. Patient states that she will intermittently be put on steroids depending on how she feels. Discussed with her I will send a 5-day course of prednisone to the pharmacy that she may initiate if her symptoms persist and/or worsen. Return precautions given, stable at time of discharge. - Vital Signs Vital signs: Temp Pulse Resp BP Pulse Ox 98.1 F 66 16 146/53 H 97 04/30/20 20:22 04/30/20 20:22 04/30/20 20:22 04/30/20 20:22 04/30/20 20:22 - Diagnostic Test Radiology reviewed: Image reviewed, Reports reviewed Discharge - Discharge Clinical Impression: Acute exacerbation of chronic bronchitis Disposition: HOME, SELF-CARE Prescriptions: Albuterol Sulfate [Ventolin Hfa 8 gm Mdi] 2 puff IH Q4HP PRN #1 inhaler PRN Reason: Benzonatate [Tessalon Perles 100 mg Capsule] 100 mg PO Q8HP PRN #40 capsule PRN Reason: Nebulizer and Compressor [[place] Nebulizer] 1 each MC ASDIR PRN #1 each PRN Reason: Prednisone [Deltasone 20 mg Tablet] 2 tab PO DAILY 5 Days #10 tablet Ipratropium/Albuterol Sulfate [Duoneb 3 ml Ampul] 3 ml NEB Q4H PRN #30 vial.neb PRN Reason: Referrals: GWEN HEAD MD [Primary Care Provider] - Follow up as needed
[2020-04-30] MEDS ORDERED: IPRATROPIUM/ALBUTEROL 0.5-2.5 MG/3 ML AMPUL NEB ONE (21:33)
[2020-04-30] MEDS ORDERED: BENZONATATE 100 MG CAPSULE PO ONE (21:33)
--- NOTE | 2020-04-30 21:58 | RADIOLOGY REPORT (SQ) ---
EXAM DESCRIPTION: XR CHEST 1 VIEW COMPLETED DATE/TME: 04/30/2020 21:11 CLINICAL HISTORY: 60 years, Female, wheezing, covid positive march 12 COMPARISON: None. NUMBER OF VIEWS: TECHNIQUE: LIMITATIONS: None. FINDINGS: No evidence of pulmonary infiltrate or pleural effusion. The heart and mediastinum are unremarkable. Pulmonary vascularity appears normal. IMPRESSION: No acute finding. copyright 2010 [employer]- All Rights Reserved
[2020-04-30 23:07] VITALS: BP 123/70
== END 2020-04-30 23:07 | disposition home or self-care (01) ==
LOC: ER 20:16
DX: J44.1 Chronic obstructive pulmonary disease with (acute) exacerbation (principal); R06.02 Shortness of breath; R06.2 Wheezing; R05 Cough; Z88.8 Allergy status to other drugs, medicaments and biological substances; Z88.2 Allergy status to sulfonamides
CPT/HCPCS: 94640 ×2; 99283; 71045; A9270 ×3; J7512; J7613

== ENCOUNTER 2020-05-15 03:14 | Emergency (ER) | payer MEDICARE, OTHER ==
[2020-05-15 05:06] LABS: APPEARANCE,URINE CLEAR; BILIRUBIN,URINE NEGATIVE (NEGATIVE); COLOR,URINE STRAW; GLUCOSE, URINE NEGATIVE (NEGATIVE); KETONES,URINE NEGATIVE (NEGATIVE); LEUKOCYTE ESTERASE,URINE NEGATIVE (NEGATIVE); NITRITE,URINE NEGATIVE (NEGATIVE); PROTEIN,URINE NEGATIVE (NEGATIVE); URINE SPECIFIC GRAVITY 1.004; UROBILINOGEN,URINE NEGATIVE mg/dL (<2.0)
--- NOTE | 2020-05-15 05:10 | RADIOLOGY REPORT (SQ) ---
EXAM: XR Chest, 2 Views EXAM DATE/TIME: 05/15/2020 04:41 CLINICAL HISTORY: The patient is 60 years old and is Female; shortness of breath TECHNIQUE: Frontal and lateral views of the chest. COMPARISON: Chest radiograph from 04/30/2020 FINDINGS: LUNGS: Unremarkable. No consolidation. PLEURAL SPACE: Unremarkable. No pneumothorax. HEART: No significant enlargement of the cardiac silhouette. MEDIASTINUM: Unremarkable. BONES/JOINTS: No acute osseous findings. IMPRESSION: No acute findings visualized in the chest.
[2020-05-15 05:11] LABS: ALBUMIN 3.7 g/dL (3.5-5.0); ALKALINE PHOSPHATASE 91 U/L (38-126); ANION GAP 7 (5-19); ASPARTATE AMINO TRANSFERASE 18 U/L (14-36); BILIRUBIN,DIRECT 0.1 mg/dL (0.0-0.4); BILIRUBIN,TOTAL 0.3 mg/dL (0.2-1.3); BLOOD UREA NITROGEN 7 mg/dL (7-20); CALCIUM 9.5 mg/dL (8.4-10.2); CARBON DIOXIDE 26 mmol/L (22-30); CHLORIDE 105 mmol/L (98-107); GLUCOSE 130 mg/dL (75-110); POTASSIUM 3.9 mmol/L (3.6-5.0)
[2020-05-15 05:17] LABS: ABSOLUTE EOSINOPHILS # (AUTO) 0.4 10^3/uL (0.0-0.6); ABSOLUTE LYMPHOCYTES (AUTO) 2.7 10^3/uL (0.5-4.7); ABSOLUTE MONOCYTES (AUTO) 0.7 10^3/uL (0.1-1.4); ABSOLUTE NEUT (AUTO) 3.9 10^3/uL (1.7-8.2); BASOPHILS % (AUTO) 0.6 % (0-2); EOSINOPHILS % (AUTO) 4.7 % (0-6); LYMPHOCYTES % (AUTO) 34.7 % (13-45); MEAN CORPUSCULAR HEMOGLOBIN 27.2 pg (27.0-33.4); MEAN CORPUSCULAR HGB CONC 33.2 g/dL (32.0-36.0); MEAN CORPUSCULAR VOLUME 82 fl (80-97); MONOCYTES % (AUTO) 9.4 % (3-13); PLATELET COUNT 210 10^3/uL (150-450); RED CELL DISTRIBUTION WIDTH 16.9 % (11.5-14.0); SEGMENTED NEUTROPHILS % (AUTO) 50.6 % (42-78); TOTAL CELLS COUNTED % (AUTO) 100 %; WHITE BLOOD COUNT 7.7 10^3/uL (4.0-10.5)
[2020-05-15] MEDS ORDERED: IPRATROPIUM/ALBUTEROL 0.5-2.5 MG/3 ML AMPUL NEB ONE ×2 (09:05→09:46)
[2020-05-15] MEDS ORDERED: PREDNISONE 20 MG TABLET PO ONE (09:05)
--- NOTE | 2020-05-15 09:06 | ER Document Report ---
ED Respiratory Problem - General Chief Complaint: Shortness Of Breath Stated Complaint: TROUBLE CATCHING BREATH Time Seen by Provider: 05/15/20 09:01 Primary Care Provider: GWEN HEAD MD [Primary Care Provider] - 05/19/20 Notes: Patient is a 60-year-old female who comes emergency department for chief complaint of wheezing, cough, productive cough with clear and yellow sputum production. Patient was seen 2 weeks ago and diagnosed with bronchitis but she still states she is having episodes especially at night where she is wheezing and coughing persistently. She denies fever/chills, chest pain, nausea, vomiting, or any other complaints. She states her home nebulizer works during the day but not at night. Patient already had COVID-19 in February and states ever since then she has had intermittent flareups of her bronchitis. She states she is chronic bronchitis, denies history of asthma, denies history of smoking. She denies medical history otherwise other than obesity. TRAVEL OUTSIDE OF THE [place] IN LAST 30 DAYS: No - Related Data Allergies/Adverse Reactions: codeine [Codeine] Allergy (Severe, Verified 03/23/20 11:50) hives,difficulty breathing hydromorphone HCl [From Dilaudid] Allergy (Severe, Verified 03/23/20 11:50) chest tight iodine [Iodine] Allergy (Severe, Verified 03/23/20 11:50) Hives morphine [Morphine] Allergy (Severe, Verified 03/23/20 11:50) hives,difficulty breathing povidone-iodine [From Betadine] Allergy (Severe, Verified 03/23/20 11:50) Hives Soap [From Betadine] Allergy (Severe, Verified 03/23/20 11:50) Hives Sulfa (Sulfonamide Antibiotics) Allergy (Severe, Verified 03/23/20 11:50) hives,tight chest aspirin [Aspirin] Allergy (Unknown, Verified 03/23/20 11:50) Hives guaifenesin [From Entex] Allergy (Unknown, Verified 03/23/20 11:50) Hives, chest tightness phenylephrine HCl [From Entex] Allergy (Unknown, Verified 03/23/20 11:50) hives, chest tightness phenylpropanolamine [From Entex] Allergy (Unknown, Verified 03/23/20 11:50) pseudoephedrine tannate [From Entex] Allergy (Unknown, Verified 03/23/20 11:50) seafood Allergy (Severe, Uncoded 03/23/20 11:50) swell,hives,can't breathe Pinapple Allergy (Uncoded 03/23/20 11:50) hives,difficulty breathing watermelon Allergy (Uncoded 03/23/20 11:50) hives,difficulty breathing Home Medications: albuterol inh, neb, tessalon pearles Past Medical History - General Information source: Patient - Social History Smoking Status: Never Smoker Frequency of alcohol use: None Drug Abuse: None Lives with: Family Family History: Reviewed & Not Pertinent - Past Medical History Cardiac Medical History: Denies: Hx Coronary Artery Disease, Hx Heart Attack, Hx Hypertension Pulmonary Medical History: Reports: Hx Bronchitis, Hx Pneumonia Denies: Hx Asthma, Hx COPD Neurological Medical History: Reports: Hx Migraine. Denies: Hx Cerebrovascular Accident, Hx Seizures Renal/ Medical History: Reports: Hx Ectopic . Denies: Hx Peritoneal Dialysis GI Medical History: Reports: Hx Irritable Bowel, Hx Colonoscopy Musculoskeletal Medical History: Reports Hx Arthritis - Left Knee, Reports Hx Musculoskeletal Deformity Past Surgical History: Reports: Hx Appendectomy, Hx Cholecystectomy, Hx Hysterectomy, Hx Orthopedic Surgery - left knee scope, Hx Tubal Ligation, Hx Umbilical Hernia - Immunizations Hx Diphtheria, Pertussis, Tetanus Vaccination: Yes Hx Pneumococcal Vaccination: 05/30/11 Review of Systems - Review of Systems Constitutional: No symptoms reported EENT: No symptoms reported Cardiovascular: No symptoms reported Respiratory: See HPI Gastrointestinal: No symptoms reported Genitourinary: No symptoms reported Female Genitourinary: No symptoms reported Musculoskeletal: No symptoms reported Skin: No symptoms reported Hematologic/Lymphatic: No symptoms reported Neurological/Psychological: No symptoms reported Physical Exam - Vital signs Vitals: Temp Pulse Resp BP Pulse Ox 97.8 F 80 24 H 145/60 H 96 05/15/20 03:22 05/15/20 03:22 05/15/20 03:22 05/15/20 03:22 05/15/20 03:22 - Notes Notes: GENERAL: Alert, interacts well. No acute distress. HEAD: Normocephalic, atraumatic. EYES: Pupils equal, round, and reactive to light. Extraocular movements intact. ENT: Oral mucosa moist, tongue midline. Oropharynx unremarkable. Airway patent. NECK: Full range of motion. Supple. Trachea midline. No lymphadenopathy. LUNGS: Expiratory wheezes throughout with frequent cough/bronchospasm. However after this passes patient is able to speak in full sentences. She does not have noted tachypnea or labored breathing. No respiratory distress. No rales or rhonchi. Otherwise unremarkable. Nontender chest. HEART: Regular rate and rhythm. No murmur ABDOMEN: Soft, non-tender. Non-distended. EXTREMITIES: Moves all 4 extremities spontaneously. No edema, normal radial and dorsalis pedis pulses bilaterally. No cyanosis. BACK: no cervical, thoracic, lumbar midline tenderness. No saddle anesthesia, no rmal distal neurovascular exam. Moves all extremities in full range of motion. NEUROLOGICAL: Alert and oriented x3. Normal speech. Cranial nerves II through XII grossly intact. Strength 5/5 in all extremities. PSYCH: Normal affect, normal mood. SKIN: Warm, dry, normal turgor. No rashes or lesions noted. Course - Re-evaluation Re-evalutation: Patient with expiratory wheezes throughout and frequent cough consistent with bronchospasm. No rales or rhonchi. No chest pain. No fever. Unremarkable vital signs. Labs, chest x-ray, EKG from triage reviewed and unremarkable. On repeat evaluation after DuoNeb's wheezing significantly improved but not completely resolved. Patient will be given additional medication recheck. 05/15/20 After additional treatments wheezing completely resolved. Patient very grateful, states she feels excellent, is requesting discharge. Patient placed on steroids because of her wheezing and bronchitis. Patient also reports worsening productive cough and worsening symptoms, she is very concerned she is developing pneumonia, because she has had repeat return of symptoms she was placed on antibiotics after discussion. We are treating potential developing underlying pneumonia with developing productive cough and worsening of her previous symptoms. I discussed follow-up and return precautions. Patient states appreciation and agreement. Stable and well-appearing at time of discharge. - Vital Signs Vital signs: Temp Pulse Resp BP Pulse Ox 98.6 F 90 18 143/66 H 97 05/15/20 10:46 05/15/20 10:46 05/15/20 10:46 05/15/20 10:46 05/15/20 10:46 - Laboratory Results Result Diagrams: 05/15/20 04:25 05/15/20 04:25 Laboratory Results Interpreted: 05/15/20 05/15/20 04:25 04:25 RDW 16.9 H Glucose 130 H Critical Laboratory Results Reviewed: No Critical Results - Radiology Results Critical Radiology Results Reviewed: No Critical Results - EKG Interpretation by Me Additional EKG results interpreted by me: EKG shows sinus rhythm at a rate of 68, QTc 447, normal axis, no T wave inversions or ST segment changes in consecutive leads Discharge - Discharge Clinical Impression: Wheezing, Shortness of breath, Productive cough Condition: Stable Disposition: HOME, SELF-CARE Additional Instructions: Your evaluation is consistent with wheezing, inflammation of the upper respiratory tract, bronchitis. Your chest x-ray does not show obvious pneumonia. Take the prednisone as prescribed, take the azithromycin as prescribed, use your albuterol nebulizer, drink plenty of fluids, and rest. Follow-up closely with your primary care provider for recheck and additional management. Come back if you are worse including difficulty breathing, chest pain, spiking fevers, or any other concerning or worsening symptoms. Prescriptions: Prednisone [Deltasone 20 mg Tablet] 3 tab PO DAILY 5 Days #15 tablet Azithromycin [Zithromax 250 mg Tablet] 250 mg PO ASDIR PRN #6 tablet PRN Reason: Forms: Parent Work Note Referrals: GWEN HEAD MD [Primary Care Provider] - 05/19/20
[2020-05-15] MEDS ORDERED: LIDOCAINE 1% INJ-PF (10 MG/ML) 30 ML SDV NEB ONE (09:47)
[2020-05-15 10:53] VITALS: BP 143/66
--- NOTE | 2020-05-15 21:26 | EKG REPORT ---
SEVERITY:- NORMAL ECG - SINUS RHYTHM : Confirmed by: Brenda Kumari MD 15-May-2020 21:25:27
== END 2020-05-15 10:46 | disposition home or self-care (01) ==
LOC: ER 03:14
DX: J42 Unspecified chronic bronchitis (principal); R05 Cough; R06.02 Shortness of breath; R06.2 Wheezing; Z79.899 Other long term (current) drug therapy; Z87.01 Personal history of pneumonia (recurrent); Z88.6 Allergy status to analgesic agent; Z88.5 Allergy status to narcotic agent; Z88.3 Allergy status to other anti-infective agents; Z88.2 Allergy status to sulfonamides; Z88.8 Allergy status to other drugs, medicaments and biological substances; Z91.013 Allergy to seafood; Z91.018 Allergy to other foods
CPT/HCPCS: 93005; 94640 ×2; 99285; 36415; 85025; 80053; 81001; 71046; 93010; J3490; A9270; J7512

== ENCOUNTER 2020-06-11 09:01 | Emergency (ER) | payer MEDICARE, OTHER ==
--- NOTE | 2020-06-11 10:24 | EKG REPORT ---
SEVERITY:- BORDERLINE ECG - SINUS RHYTHM BORDERLINE LEFT AXIS DEVIATION BORDERLINE T WAVE ABNORMALITIES : Confirmed by: Brenda Kumari MD 11-Jun-2020 10:24:27
[2020-06-11] MEDS ORDERED: IPRATROPIUM/ALBUTEROL 0.5-2.5 MG/3 ML AMPUL NEB ONE (10:33)
[2020-06-11] MEDS ORDERED: METHYLPREDNISOLONE INJ 125 MG/2 ML SDV IV ONE (10:33)
[2020-06-11] MEDS ORDERED: BENZONATATE 100 MG CAPSULE PO ONE (10:33)
--- NOTE | 2020-06-11 10:35 | ER Document Report ---
ED Respiratory Problem - General Chief Complaint: Cough Stated Complaint: COUGH/WHEEZING/SOB/CHEST TIGHTNESS Time Seen by Provider: 06/11/20 09:45 Primary Care Provider: GWEN HEAD MD [Primary Care Provider] - Follow up in 3-5 days Notes: Patient 60-year-old female presents emergency department with a chief complaint of a productive cough and shortness of breath. Patient states that he has been using her nebulizers and inhalers at home, with little relief. States that she has had this cough since March. States that it will come and go. She has not seen her primary care provider, but has an appointment on June 18. Patient does have a history of chronic bronchitis. TRAVEL OUTSIDE OF THE [place] IN LAST 30 DAYS: No - Related Data Allergies/Adverse Reactions: codeine [Codeine] Allergy (Severe, Verified 06/11/20 09:43) hives,difficulty breathing hydromorphone HCl [From Dilaudid] Allergy (Severe, Verified 06/11/20 09:43) chest tight iodine [Iodine] Allergy (Severe, Verified 06/11/20 09:43) Hives morphine [Morphine] Allergy (Severe, Verified 06/11/20 09:43) hives,difficulty breathing povidone-iodine [From Betadine] Allergy (Severe, Verified 06/11/20 09:43) Hives Soap [From Betadine] Allergy (Severe, Verified 06/11/20 09:43) Hives Sulfa (Sulfonamide Antibiotics) Allergy (Severe, Verified 06/11/20 09:43) hives,tight chest aspirin [Aspirin] Allergy (Unknown, Verified 06/11/20 09:43) Hives guaifenesin [From Entex] Allergy (Unknown, Verified 06/11/20 09:43) Hives, chest tightness phenylephrine HCl [From Entex] Allergy (Unknown, Verified 06/11/20 09:43) hives, chest tightness phenylpropanolamine [From Entex] Allergy (Unknown, Verified 06/11/20 09:43) pseudoephedrine tannate [From Entex] Allergy (Unknown, Verified 06/11/20 09:43) seafood Allergy (Severe, Uncoded 03/23/20 11:50) swell,hives,can't breathe Pinapple Allergy (Uncoded 03/23/20 11:50) hives,difficulty breathing watermelon Allergy (Uncoded 03/23/20 11:50) hives,difficulty breathing Past Medical History - Social History Smoking Status: Never Smoker Frequency of alcohol use: Occasional Drug Abuse: None Family History: Reviewed & Not Pertinent Patient has homicidal ideation: No - Past Medical History Cardiac Medical History: Denies: Hx Coronary Artery Disease, Hx Heart Attack, Hx Hypertension Pulmonary Medical History: Reports: Hx Bronchitis, Hx Pneumonia Denies: Hx Asthma, Hx COPD Neurological Medical History: Reports: Hx Migraine. Denies: Hx Cerebrovascular Accident, Hx Seizures Renal/ Medical History: Reports: Hx Ectopic . Denies: Hx Peritoneal Dialysis GI Medical History: Reports: Hx Irritable Bowel, Hx Colonoscopy Musculoskeletal Medical History: Reports Hx Arthritis - Left Knee, Reports Hx Musculoskeletal Deformity Past Surgical History: Reports: Hx Abdominal Surgery - hernia, Hx Appendectomy, Hx Cholecystectomy, Hx Hysterectomy, Hx Orthopedic Surgery - left knee scope, Hx Tubal Ligation, Hx Umbilical Hernia - Immunizations Hx Diphtheria, Pertussis, Tetanus Vaccination: Yes Hx Pneumococcal Vaccination: 05/30/11 Review of Systems - Review of Systems Notes: REVIEW OF SYSTEMS: CONSTITUTIONAL : Denies recent illness. Denies recent unintentional weight loss. Denies fever, chills, or sweats. EENT: Denies eye, ear, throat, or mouth pain, discharge, or symptoms. Denies nasal or sinus congestion. CARDIOVASCULAR: Denies chest pain. RESPIRATORY: See HPI. GASTROINTESTINAL: Denies nausea, vomiting, and diarrhea. Denies abdominal pain. Denies constipation. GENITOURINARY: Denies difficulty urinating, burning, blood in urine, urgency or frequency. MUSCULOSKELETAL: Denies neck and back pain. Denies joint pain or swelling. SKIN: Denies rash, itchiness, or lesions HEMATOLOGIC : Denies easy bruising or bleeding. LYMPHATIC: Denies swollen, painful, enlarged glands. NEUROLOGICAL: Denies no numbness or tingling denies weakness. Denies headache. Denies altered mental status. Denies alteration in speech. PSYCHIATRIC: Denies stress, anxiety, alteration in sleep patterns, or depression. All other systems reviewed and negative. Physical Exam - Vital signs Vitals: Temp Pulse Resp BP Pulse Ox 98.7 F 89 16 120/99 H 97 06/11/20 09:05 06/11/20 09:05 06/11/20 09:05 06/11/20 09:05 06/11/20 09:05 - Notes Notes: PHYSICAL EXAMINATION: GENERAL: Appears well, healthy, well-nourished, no acute distress. HEAD: Normocephalic, atraumatic. EYES: PERRL, conjunctiva normal, all extraocular movements intact, sclera nonicteric ENT: Moist mucous membranes. NECK: Supple, no noticeable swelling, redness, rash. Normal range of motion. LUNGS: Diminished expiratory phase, clear inspiratory phase. CARDIOVASCULAR: S1-S2, regular rate, regular rhythm. Radial pulses 2+, normal. ABDOMEN: Normoactive bowel sounds. Soft, nontender, no guarding, no rebound tenderness, and no masses palpated. EXTREMITIES: Normal strength and range of motion, no pitting or edema. No cyanosis. NEUROLOGICAL: Moves all extremities upon command. Strength 5/5 in all extremities. PSYCH: Normal mood, normal affect. SKIN: Warm, dry. No rash, lesions, ulcerations noted. Normal skin turgor. Course - Re-evaluation Re-evalutation: 06/11/20 15:11 Hematology is unremarkable, a hemoglobin of 11.9, which is the patient's about normal. Chemistries are unremarkable. Chemistries did hemolyzed earlier, that is why it took a while for the patient to have this resulted. Patient does state that she feels better. Influenza tests are negative. The patient was evaluated during the global COVID-19 pandemic and that diagnosis was suspected/considered upon their initial presentation. Their evaluation, treatment and testing was consistent with current guidelines for patients who present with complaints or symptoms that may be related to COVID-19. We will start the patient on prednisone. X-ray is unremarkable. Follow-up precautions were given. Verbal discharge instructions were given to the patient. They v erbalized understanding. They are stable for discharge. - Vital Signs Vital signs: Temp Pulse Resp BP Pulse Ox 98.1 F 85 18 157/70 H 98 06/11/20 15:50 06/11/20 15:50 06/11/20 15:50 06/11/20 15:50 06/11/20 15:50 - Laboratory Results Result Diagrams: 06/11/20 11:15 06/11/20 12:30 Laboratory Results Interpreted: 06/11/20 06/11/20 11:15 12:30 Hgb 11.9 L Hct 35.4 L RDW 16.5 H Eos % (Auto) 6.5 H BUN 5 L Creatinine 0.49 L Glucose 113 H Critical Laboratory Results Reviewed: No Critical Results - Radiology Results Critical Radiology Results Reviewed: No Critical Results Discharge - Discharge Clinical Impression: Shortness of breath Condition: Stable Disposition: HOME, SELF-CARE Instructions: COVID-19 Guidance for Persons Under Investigation Additional Instructions: Take the steroid as prescribed. Take the Tessalon Perles if needed. Follow-up with your primary care provider. As a person under investigation for COVID-19, the [place] Department of Health and Human Services (division on public health) advises you to adhere to the following guidance until your test results are reported to you. If your test result is positive, you will receive additional information from your provider and your local health department at that time. Remain at home until you are cleared by the health provider or public health authorities. Keep a log of visitors to your home, notify any visitors to your home of your isolation status. If you plan to move to a new address or leave the critical access hospital, notify the local health department in your [facility]. Call your Doctor or seek care if you have an urgent medical need. Before seeking medical care, call him to get instructions from the provider before arriving at the medical office, clinic, or hospital. Notify them that you are being tested f or the virus (COVID-19) so that arrangements can be made, as necessary, to prevent transmission to others in the healthcare setting. Next, notify the local health department in your critical access hospital. Prescriptions: Prednisone [Deltasone 20 mg Tablet] 3 tab PO DAILY 5 Days #15 tablet Albuterol Sulfate [Proventil 0.5% Neb 2.5 mg/0.5 ml Vial.neb] 2.5 mg NEB Q4HP PRN #[id number] vial.neb PRN Reason: Referrals: GWEN HEAD MD [Primary Care Provider] - Follow up in 3-5 days
--- NOTE | 2020-06-11 11:22 | RADIOLOGY REPORT (SQ) ---
EXAM DESCRIPTION: CHEST SINGLE VIEW IMAGES COMPLETED DATE/TIME: 06/11/2020 10:45 am REASON FOR STUDY: shortness of breath COMPARISON: 05/15/2020 NUMBER OF VIEWS: One view. TECHNIQUE: Single frontal radiographic view of the chest acquired. LIMITATIONS: None. FINDINGS: LUNGS AND PLEURA: No opacities, masses or pneumothorax. No pleural effusion. MEDIASTINUM AND HILAR STRUCTURES: No masses. Contour normal. HEART AND VASCULAR STRUCTURES: Heart normal in size. Normal vasculature. BONES: No acute findings. HARDWARE: None in the chest. OTHER: No other significant finding. IMPRESSION: NO SIGNIFICANT RADIOGRAPHIC FINDING IN THE CHEST. TECHNICAL DOCUMENTATION: JOB ID: [id number] 2010 [employer]- All Rights Reserved Reading location - IP/workstation name: [email or web address]
[2020-06-11 11:59] LABS: ABSOLUTE EOSINOPHILS # (AUTO) 0.4 10^3/uL (0.0-0.6); ABSOLUTE LYMPHOCYTES (AUTO) 1.7 10^3/uL (0.5-4.7); ABSOLUTE MONOCYTES (AUTO) 0.5 10^3/uL (0.1-1.4); ABSOLUTE NEUT (AUTO) 3.8 10^3/uL (1.7-8.2); BASOPHILS % (AUTO) 0.7 % (0-2); EOSINOPHILS % (AUTO) 6.5 % (0-6); HEMATOCRIT 35.4 % (36.0-47.0); HEMOGLOBIN 11.9 g/dL (12.0-15.5); MEAN CORPUSCULAR HEMOGLOBIN 27.7 pg (27.0-33.4); MEAN CORPUSCULAR HGB CONC 33.7 g/dL (32.0-36.0); MEAN CORPUSCULAR VOLUME 82 fl (80-97); RED BLOOD COUNT 4.31 10^6/uL (3.72-5.28); RED CELL DISTRIBUTION WIDTH 16.5 % (11.5-14.0); SEGMENTED NEUTROPHILS % (AUTO) 58.8 % (42-78); TOTAL CELLS COUNTED % (AUTO) 100 %; WHITE BLOOD COUNT 6.5 10^3/uL (4.0-10.5)
[2020-06-11 12:17] LABS: PLATELET COUNT 198 10^3/uL (150-450)
[2020-06-11 12:26] LABS: A TYPE INFLUENZA AG NEGATIVE (NEGATIVE); B INFLUENZA AG NEGATIVE (NEGATIVE)
[2020-06-11 14:38] LABS: ALKALINE PHOSPHATASE 69 U/L (38-126); ANION GAP 9 (5-19); ASPARTATE AMINO TRANSFERASE 24 U/L (14-36); BILIRUBIN,DIRECT 0.3 mg/dL (0.0-0.4); BILIRUBIN,TOTAL 0.5 mg/dL (0.2-1.3); BLOOD UREA NITROGEN 5 mg/dL (7-20); CALCIUM 9.3 mg/dL (8.4-10.2); CARBON DIOXIDE 23 mmol/L (22-30); CHLORIDE 107 mmol/L (98-107); GLUCOSE 113 mg/dL (75-110); POTASSIUM 4.1 mmol/L (3.6-5.0); TOTAL PROTEIN 7.3 g/dL (6.3-8.2)
[2020-06-11 15:51] VITALS: BP 157/70
== END 2020-06-11 15:51 | disposition home or self-care (01) ==
LOC: ER 09:01
DX: J42 Unspecified chronic bronchitis (principal); R06.02 Shortness of breath; R05 Cough; Z79.899 Other long term (current) drug therapy; Z87.01 Personal history of pneumonia (recurrent); Z88.6 Allergy status to analgesic agent; Z88.5 Allergy status to narcotic agent; Z88.3 Allergy status to other anti-infective agents; Z88.2 Allergy status to sulfonamides; Z88.8 Allergy status to other drugs, medicaments and biological substances; Z91.013 Allergy to seafood; Z91.018 Allergy to other foods; Z20.822 Contact with and (suspected) exposure to COVID-19
CPT/HCPCS: 93005; 94640; 99285; 96374; 36415; 85025; 80053; 87804; 71045; 93010; U0003; A9270; J2930; C9803; 87635

== ENCOUNTER → 2020-06-18 | Outpatient (CLI) | payer MEDICARE, OTHER ==
--- OUTSIDE RECORDS SUMMARY | 2020-06-18 15:53 | XMS REPORT ---
:1960 [facility] [place] [facility] [place] [address] [place] [id number] Care Team Providers Name Role Phone Kulwant Schumacher Attending Clinician Unavailable Allergies, Adverse Reactions, Alerts Allergy Allergy Status Severity Reaction(s) Onset Inactive Treating C omments Name Type Date Date Clinician Entex La Allergy to Active substance Magnesium Allergy to Active Sulfate substance Morphine Allergy to Active substance Medications This patient has no known medications. Problems This patient has no known problems. Procedures Procedure Date / Time Performed Performing Clinician Devic e pulse oximetry (PROC) 2020-06-01 00:00:00 Established patient office or other 2019-09-11 09:20:00 outpatient visit, typically 15 minutes Established patient office or other 2019-08-23 09:54:00 outpatient visit, typically 15 minutes Established patient office or other 2019-08-14 10:12:00 outpatient visit, typically 15 minutes Established patient office or other 2019-07-20 09:52:00 outpatient visit, typically 10 minutes Established patient office or other 2019-07-04 15:22:00 outpatient visit, typically 15 minutes Established patient office or other 2019-06-29 10:22:00 outpatient visit, typically 15 minutes Established patient office or other 2019-06-14 15:15:00 outpatient visit, typically 15 minutes Colonoscopy 2018-05-30 00:00:00 OFFICE OUTPT EST15 MIN 2017-09-26 09:11:00 Joint Replacement 2017-05-30 00:00:00 OFFICE OUTPT EST 25 MIN 2017 16:22:00 OFFICE OUTPT EST15 MIN 2017-03-10 14:27:00 OFFICE OUTPT EST 10 MIN 2016-12-07 13:42:00 OFFICE OUTPT EST 10 MIN 2016-09-01 11:43:00 OFFICE OUTPT EST15 MIN 2016-08-09 12:58:00 OFFICE OUTPT EST15 MIN 2016-08-03 15:47:00 Hysterectomy 1998-05-30 00:00:00 Results Test Description Test Time Test Comments Text Results Atomic Results Result Comments SARS-CoV-2 RNA Resp Ql KRISH+probe 2020-06-13 00:00:00 Test Item Value Reference Range Comments SARS-CoV-2 RNA Resp Ql KRISH+probe Not detected [facility] Case ID: (test code = [id number]) [id number] Assessments Condition Name Status Diagnosis Date Treating Clinici an Risk of exposure to communicable Active 2020-06-01 14:1 9:28 disease Contusion of right foot, initial Active encounter Benign neoplasm of right breast Active Contusion of right foot, initial Active encounter Body Mass Index Between 38.0-38.9, Active Adult Body Mass Index Between 38.0-38.9, Active Adult Body Mass Index Between 38.0-38.9, Active Adult Morbid Obesity Active Morbid Obesity Active Morbid Obesity Active Morbid Obesity Active Intervertebral disc disorders with Active radiculopathy, lumbar region Intervertebral disc disorders with Active radiculopathy, lumbar region Intervertebral disc disorders with Active radiculopathy, lumbar region Intervertebral disc disorders with Active radiculopathy, lumbar region Intervertebral disc disorders with Active radiculopathy, lumbar region Right lower quadrant pain Active Retained cholelithiasis following Active cholecystectomy Right lower quadrant pain Active Retained cholelithiasis following Active cholecystectomy Right lower quadrant pain Active Retained cholelithiasis following Active cholecystectomy Right lower quadrant pain Active Retained cholelithiasis following Active cholecystectomy Right lower quadrant pain Active Retained cholelithiasis following Active cholecystectomy Unspecified abnormal findings in urine Active Unspecified abnormal findings in urine Active Unspecified abnormal findings in urine Active Unspecified abnormal findings in urine Active Unspecified abnormal findings in urine Active Unspecified abnormal findings in urine Active Right lower quadrant pain Active Retained cholelithiasis following Active cholecystectomy Morbid (severe) obesity due to excess Active calories Person consulting for explanation of Active examination or test findings Morbid (severe) obesity due to excess Active calories Person consulting for explanation of Active examination or test findings Morbid (severe) obesity due to excess Active calories Person consulting for explanation of Active examination or test findings Morbid (severe) obesity due to excess Active calories Person consulting for explanation of Active examination or test findings Morbid (severe) obesity due to excess Active calories Person consulting for explanation of Active examination or test findings Morbid (severe) obesity due to excess Active calories Person consulting for explanation of Active examination or test findings Morbid (severe) obesity due to excess Active calories Person consulting for explanation of Active examination or test findings Sciatica, left side Active Low back pain Active Sciatica, right side Active Sciatica, left side Active Low back pain Active Sciatica, right side Active Sciatica, left side Active Low back pain Active Sciatica, right side Active Sciatica, left side Active Low back pain Active Sciatica, right side Active Sciatica, left side Active Low back pain Active Sciatica, right side Active Sciatica, left side Active Low back pain Active Sciatica, right side Active Sciatica, left side Active Low back pain Active Sciatica, right side Active Unilateral primary osteoarthritis, Active right hip Unilateral primary osteoarthritis, Active right knee Unilateral primary osteoarthritis, Active right hip Unilateral primary osteoarthritis, Active right knee Unilateral primary osteoarthritis, Active right hip Unilateral primary osteoarthritis, Active right knee Unilateral primary osteoarthritis, Active right hip Unilateral primary osteoarthritis, Active right knee Unilateral primary osteoarthritis, Active right hip Unilateral primary osteoarthritis, Active right knee Unilateral primary osteoarthritis, Active right hip Unilateral primary osteoarthritis, Active right knee Unilateral primary osteoarthritis, Active right hip Unilateral primary osteoarthritis, Active right knee Knee Replacement Active Pain in left knee Active Stiffness of left knee, not elsewhere Active classified Knee Replacement Active Pain in left knee Active Stiffness of left knee, not elsewhere Active classified Knee Replacement Active Pain in left knee Active Stiffness of left knee, not elsewhere Active classified Knee Replacement Active Pain in left knee Active Stiffness of left knee, not elsewhere Active classified Knee Replacement Active Pain in left knee Active Stiffness of left knee, not elsewhere Active classified Knee Replacement Active Pain in left knee Active Stiffness of left knee, not elsewhere Active classified Knee Replacement Active Pain in left knee Active Stiffness of left knee, not elsewhere Active classified Stiffness of Joint Not Elsewhere Active Classified of Site Not Elsewhere Classified Stiffness of unspecified joint, not Active elsewhere classified Stiffness of Joint Not Elsewhere Active Classified of Site Not Elsewhere Classified Stiffness of unspecified joint, not Active elsewhere classified Stiffness of Joint Not Elsewhere Active Classified of Site Not Elsewhere Classified Stiffness of unspecified joint, not Active elsewhere classified Stiffness of Joint Not Elsewhere Active Classified of Site Not Elsewhere Classified Stiffness of unspecified joint, not Active elsewhere classified Stiffness of Joint Not Elsewhere Active Classified of Site Not Elsewhere Classified Stiffness of unspecified joint, not Active elsewhere classified Stiffness of Joint Not Elsewhere Active Classified of Site Not Elsewhere Classified Stiffness of unspecified joint, not Active elsewhere classified Stiffness of Joint Not Elsewhere Active Classified of Site Not Elsewhere Classified Stiffness of unspecified joint, not Active elsewhere classified Body mass index (BMI) 38.0-38.9, adult Active Body mass index (BMI) 38.0-38.9, adult Active Body mass index (BMI) 38.0-38.9, adult Active Body mass index (BMI) 38.0-38.9, adult Active Body mass index (BMI) 38.0-38.9, adult Active Body mass index (BMI) 38.0-38.9, adult Active Body mass index (BMI) 38.0-38.9, adult Active Obesity, unspecified Active Body mass index (BMI) 40.0-44.9, adult Active Body mass index (BMI) 40.0-44.9, adult Active Obesity, unspecified Active Obesity, unspecified Active Body mass index (BMI) 40.0-44.9, adult Active Obesity, unspecified Active Body mass index (BMI) 40.0-44.9, adult Active Obesity, unspecified Active Body mass index (BMI) 40.0-44.9, adult Active Obesity, unspecified Active Body mass index (BMI) 40.0-44.9, adult Active Obesity, unspecified Active Body mass index (BMI) 40.0-44.9, adult Active Acute nasopharyngitis [common cold] Active Bronchitis, not specified as acute or Active chronic Acute nasopharyngitis [common cold] Active Bronchitis, not specified as acute or Active chronic Acute nasopharyngitis [common cold] Active Bronchitis, not specified as acute or Active chronic Acute nasopharyngitis [common cold] Active Bronchitis, not specified as acute or Active chronic Acute nasopharyngitis [common cold] Active Bronchitis, not specified as acute or Active chronic Acute nasopharyngitis [common cold] Active Bronchitis, not specified as acute or Active chronic Acute nasopharyngitis [common cold] Active Bronchitis, not specified as acute or Active chronic Symptoms in Breast Not Elsewhere Active Classified Symptoms in Breast Not Elsewhere Active Classified Symptoms in Breast Not Elsewhere Active Classified Symptoms in Breast Not Elsewhere Active Classified Symptoms in Breast Not Elsewhere Active Classified Symptoms in Breast Not Elsewhere Active Classified Symptoms in Breast Not Elsewhere Active Classified Local Superficial Swelling, Mass or Active Lump Disability examination Active Local Superficial Swelling, Mass or Active Lump Disability examination Active Local Superficial Swelling, Mass or Active Lump Disability examination Active Local Superficial Swelling, Mass or Active Lump Disability examination Active Local Superficial Swelling, Mass or Active Lump Disability examination Active Local Superficial Swelling, Mass or Active Lump Disability examination Active Local Superficial Swelling, Mass or Active Lump Disability examination Active Localized swelling, mass and lump, left Active lower limb Localized swelling, mass and lump, left Active lower limb Localized swelling, mass and lump, left Active lower limb Localized swelling, mass and lump, left Active lower limb Localized swelling, mass and lump, left Active lower limb Localized swelling, mass and lump, left Active lower limb Localized swelling, mass and lump, left Active lower limb Encounter for disability determination Active Presence of left artificial knee joint Active Encounter for disability determination Active Presence of left artificial knee joint Active Encounter for disability determination Active Presence of left artificial knee joint Active Encounter for disability determination Active Presence of left artificial knee joint Active Encounter for disability determination Active Presence of left artificial knee joint Active Encounter for disability determination Active Presence of left artificial knee joint Active Encounter for disability determination Active Presence of left artificial knee joint Active Localized swelling, mass and lump, left Active lower limb Presence of left artificial knee joint Active Encounter for disability determination Active Localized Adiposity Active ERYTHEMATOUS COND NEC Active Localized adiposity Active Erythema intertrigo Active Other abnormal and inconclusive Active findings on diagnostic imaging of breast Localized Adiposity Active ERYTHEMATOUS COND NEC Active Localized adiposity Active Erythema intertrigo Active Other abnormal and inconclusive Active findings on diagnostic imaging of breast Localized Adiposity Active ERYTHEMATOUS COND NEC Active Localized adiposity Active Erythema intertrigo Active Other abnormal and inconclusive Active findings on diagnostic imaging of breast Localized Adiposity Active ERYTHEMATOUS COND NEC Active Localized adiposity Active Erythema intertrigo Active Other abnormal and inconclusive Active findings on diagnostic imaging of breast Localized Adiposity Active ERYTHEMATOUS COND NEC Active Localized adiposity Active Erythema intertrigo Active Other abnormal and inconclusive Active findings on diagnostic imaging of breast Localized Adiposity Active ERYTHEMATOUS COND NEC Active Localized adiposity Active Erythema intertrigo Active Other abnormal and inconclusive Active findings on diagnostic imaging of breast Localized Adiposity Active ERYTHEMATOUS COND NEC Active Localized adiposity Active Erythema intertrigo Active Other abnormal and inconclusive Active findings on diagnostic imaging of breast Localized adiposity Active Erythema intertrigo Active Other abnormal and inconclusive Active findings on diagnostic imaging of breast Nipple discharge Active Nipple discharge Active Nipple discharge Active Nipple discharge Active Nipple discharge Active Nipple discharge Active Nipple discharge Active Nipple discharge Active Nipple discharge Active Unilateral primary osteoarthritis, left Active knee Unilateral primary osteoarthritis, left Active knee Unilateral primary osteoarthritis, left Active knee Unilateral primary osteoarthritis, left Active knee Unilateral primary osteoarthritis, left Active knee Unilateral primary osteoarthritis, left Active knee Unilateral primary osteoarthritis, left Active knee Chronic allergic otitis media, Active bilateral Other specified joint disorders, left Active knee Chronic allergic otitis media, Active bilateral Other specified joint disorders, left Active knee Chronic allergic otitis media, Active bilateral Other specified joint disorders, left Active knee Chronic allergic otitis media, Active bilateral Other specified joint disorders, left Active knee Chronic allergic otitis media, Active bilateral Other specified joint disorders, left Active knee Chronic allergic otitis media, Active bilateral Other specified joint disorders, left Active knee Chronic allergic otitis media, Active bilateral Other specified joint disorders, left Active knee Other seasonal allergic rhinitis Active Other seasonal allergic rhinitis Active Other seasonal allergic rhinitis Active Other seasonal allergic rhinitis Active Other seasonal allergic rhinitis Active Other seasonal allergic rhinitis Active Other seasonal allergic rhinitis Active Acute upper respiratory infection, Active unspecified Acute upper respiratory infection, Active unspecified Acute upper respiratory infection, Active unspecified Acute upper respiratory infection, Active unspecified Acute upper respiratory infection, Active unspecified Acute upper respiratory infection, Active unspecified Acute upper respiratory infection, Active unspecified Epigastric Abdominal Pain Active Epigastric Abdominal Pain Active Epigastric Abdominal Pain Active Epigastric Abdominal Pain Active Epigastric Abdominal Pain Active Epigastric Abdominal Pain Active Epigastric Abdominal Pain Active Body Mass Index Between 37.0-37.9, Active Adult Body mass index (BMI) 37.0-37.9, adult Active Body Mass Index Between 37.0-37.9, Active Adult Body mass index (BMI) 37.0-37.9, adult Active Body Mass Index Between 37.0-37.9, Active Adult Body mass index (BMI) 37.0-37.9, adult Active Body Mass Index Between 37.0-37.9, Active Adult Body mass index (BMI) 37.0-37.9, adult Active Body Mass Index Between 37.0-37.9, Active Adult Body mass index (BMI) 37.0-37.9, adult Active Body Mass Index Between 37.0-37.9, Active Adult Body mass index (BMI) 37.0-37.9, adult Active Body Mass Index Between 37.0-37.9, Active Adult Body mass index (BMI) 37.0-37.9, adult Active Dietary counseling and surveillance Active Body mass index (BMI) 37.0-37.9, adult Active Other jail (current) drug therapy Active Other obesity due to excess calories Active Acute upper respiratory infection, Active unspecified Acute bronchitis, unspecified Active Epigastric pain Active Constipation, unspecified Active Epigastric pain Active Constipation, unspecified Active Epigastric pain Active Constipation, unspecified Active Epigastric pain Active Constipation, unspecified Active Epigastric pain Active Constipation, unspecified Active Epigastric pain Active Constipation, unspecified Active Constipation, unspecified Active Epigastric pain Active Epigastric pain Active Other obesity due to excess calories Active Irritable bowel syndrome with Active constipation Irritable bowel syndrome with Active constipation Irritable bowel syndrome with Active constipation Irritable bowel syndrome with Active constipation Irritable bowel syndrome with Active constipation Irritable bowel syndrome with Active constipation Irritable bowel syndrome with Active constipation Irritable Bowel Syndrome Active Irritable bowel syndrome with diarrhea Active Irritable Bowel Syndrome Active Irritable bowel syndrome with diarrhea Active Irritable Bowel Syndrome Active Irritable bowel syndrome with diarrhea Active Irritable Bowel Syndrome Active Irritable bowel syndrome with diarrhea Active Irritable Bowel Syndrome Active Irritable bowel syndrome with diarrhea Active Irritable Bowel Syndrome Active Irritable bowel syndrome with diarrhea Active Irritable Bowel Syndrome Active Irritable bowel syndrome with diarrhea Active Right Upper Quadrant Abdominal Pain Active Right Upper Quadrant Abdominal Pain Active Right Upper Quadrant Abdominal Pain Active Right Upper Quadrant Abdominal Pain Active Right Upper Quadrant Abdominal Pain Active Right Upper Quadrant Abdominal Pain Active Right Upper Quadrant Abdominal Pain Active Acquired Absence of Intestine (Large) Active (Small) Other specified postprocedural states Active Acquired absence of other specified Active parts of digestive tract Acquired Absence of Intestine (Large) Active (Small) Other specified postprocedural states Active Acquired absence of other specified Active parts of digestive tract Acquired Absence of Intestine (Large) Active (Small) Other specified postprocedural states Active Acquired absence of other specified Active parts of digestive tract Acquired Absence of Intestine (Large) Active (Small) Other specified postprocedural states Active Acquired absence of other specified Active parts of digestive tract Acquired Absence of Intestine (Large) Active (Small) Other specified postprocedural states Active Acquired absence of other specified Active parts of digestive tract Acquired Absence of Intestine (Large) Active (Small) Other specified postprocedural states Active Acquired absence of other specified Active parts of digestive tract Acquired Absence of Intestine (Large) Active (Small) Other specified postprocedural states Active Acquired absence of other specified Active parts of digestive tract Right upper quadrant pain Active Right upper quadrant pain Active Right upper quadrant pain Active Right upper quadrant pain Active Right upper quadrant pain Active Right upper quadrant pain Active Right upper quadrant pain Active Other intervertebral disc degeneration, Active lumbar region Other chronic pain Active nursing home (current) use of opiate Active analgesic Other chronic pain Active 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 analgesic Other intervertebral disc degeneration, Active lumbar region nursing home (current) use of opiate Active analgesic Other chronic pain Active Other intervertebral disc degeneration, Active lumbar region nursing home (current) use of opiate Active analgesic Other chronic pain Active Other intervertebral disc degeneration, Active lumbar region nursing home (current) use of opiate Active analgesic Other chronic pain Active Other intervertebral disc degeneration, Active lumbar region nursing home (current) use of opiate Active analgesic Other chronic pain Active Other intervertebral disc degeneration, Active lumbar region 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 analgesic Other chronic pain Active Other intervertebral disc degeneration, Active lumbar region Acute bronchitis, unspecified Active Acute sinusitis, unspecified Active Acute bronchitis, unspecified Active Acute sinusitis, unspecified Active Acute bronchitis, unspecified Active Acute sinusitis, unspecified Active Acute bronchitis, unspecified Active Acute sinusitis, unspecified Active Acute bronchitis, unspecified Active Acute sinusitis, unspecified Active Acute bronchitis, unspecified Active Acute sinusitis, unspecified Active Acute bronchitis, unspecified Active Acute sinusitis, unspecified Active Dietary counseling and surveillance Active Dietary counseling and surveillance Active Dietary counseling and surveillance Active Dietary counseling and surveillance Active Dietary counseling and surveillance Active Dietary counseling and surveillance Active Dietary counseling and surveillance Active Special Screening Examination for Active Malignant Neoplasm of Cervix Localized Osteoarthrosis Not Otherwise Active Specified of Lower Leg Osteoarthritis of knee, unspecified Active Encounter for screening for malignant Active neoplasm of cervix Special Screening Examination for Active Malignant Neoplasm of Cervix Localized Osteoarthrosis Not Otherwise Active Specified of Lower Leg Osteoarthritis of knee, unspecified Active Encounter for screening for malignant Active neoplasm of cervix Special Screening Examination for Active Malignant Neoplasm of Cervix Localized Osteoarthrosis Not Otherwise Active Specified of Lower Leg Osteoarthritis of knee, unspecified Active Encounter for screening for malignant Active neoplasm of cervix Special Screening Examination for Active Malignant Neoplasm of Cervix Localized Osteoarthrosis Not Otherwise Active Specified of Lower Leg Osteoarthritis of knee, unspecified Active Encounter for screening for malignant Active neoplasm of cervix Special Screening Examination for Active Malignant Neoplasm of Cervix Localized Osteoarthrosis Not Otherwise Active Specified of Lower Leg Osteoarthritis of knee, unspecified Active Encounter for screening for malignant Active neoplasm of cervix Special Screening Examination for Active Malignant Neoplasm of Cervix Localized Osteoarthrosis Not Otherwise Active Specified of Lower Leg Osteoarthritis of knee, unspecified Active Encounter for screening for malignant Active neoplasm of cervix Special Screening Examination for Active Malignant Neoplasm of Cervix Localized Osteoarthrosis Not Otherwise Active Specified of Lower Leg Osteoarthritis of knee, unspecified Active Encounter for screening for malignant Active neoplasm of cervix Hyperlipidemia Not Elsewhere Classified Active and Not Otherwise Specified Obesity Not Otherwise Specified Active Other obesity due to excess calories Active Hyperlipidemia, unspecified Active Hyperlipidemia Not Elsewhere Classified Active and Not Otherwise Specified Obesity Not Otherwise Specified Active Other obesity due to excess calories Active Hyperlipidemia, unspecified Active Hyperlipidemia Not Elsewhere Classified Active and Not Otherwise Specified Obesity Not Otherwise Specified Active Other obesity due to excess calories Active Hyperlipidemia, unspecified Active Hyperlipidemia Not Elsewhere Classified Active and Not Otherwise Specified Obesity Not Otherwise Specified Active Other obesity due to excess calories Active Hyperlipidemia, unspecified Active Hyperlipidemia Not Elsewhere Classified Active and Not Otherwise Specified Obesity Not Otherwise Specified Active Other obesity due to excess calories Active Hyperlipidemia, unspecified Active Hyperlipidemia Not Elsewhere Classified Active and Not Otherwise Specified Obesity Not Otherwise Specified Active Other obesity due to excess calories Active Hyperlipidemia, unspecified Active Hyperlipidemia Not Elsewhere Classified Active and Not Otherwise Specified Obesity Not Otherwise Specified Active Other obesity due to excess calories Active Hyperlipidemia, unspecified Active Routine Gynecological Examination Active Encounter for gynecological examination Active (general) (routine) without abnormal findings Routine Gynecological Examination Active Encounter for gynecological examination Active (general) (routine) without abnormal findings Routine Gynecological Examination Active Encounter for gynecological examination Active (general) (routine) without abnormal findings Routine Gynecological Examination Active Encounter for gynecological examination Active (general) (routine) without abnormal findings Routine Gynecological Examination Active Encounter for gynecological examination Active (general) (routine) without abnormal findings Routine Gynecological Examination Active Encounter for gynecological examination Active (general) (routine) without abnormal findings Routine Gynecological Examination Active Encounter for gynecological examination Active (general) (routine) without abnormal findings Hyperglycemia Active Acute Conjunctivitis Not Otherwise Active Specified Other abnormal glucose Active Unspecified acute conjunctivitis, right Active eye Hyperglycemia Active Acute Conjunctivitis Not Otherwise Active Specified Other abnormal glucose Active Unspecified acute conjunctivitis, right Active eye Hyperglycemia Active Acute Conjunctivitis Not Otherwise Active Specified Other abnormal glucose Active Unspecified acute conjunctivitis, right Active eye Hyperglycemia Active Acute Conjunctivitis Not Otherwise Active Specified Other abnormal glucose Active Unspecified acute conjunctivitis, right Active eye Hyperglycemia Active Acute Conjunctivitis Not Otherwise Active Specified Other abnormal glucose Active Unspecified acute conjunctivitis, right Active eye Hyperglycemia Active Acute Conjunctivitis Not Otherwise Active Specified Other abnormal glucose Active Unspecified acute conjunctivitis, right Active eye Hyperglycemia Active Acute Conjunctivitis Not Otherwise Active Specified Other abnormal glucose Active Unspecified acute conjunctivitis, right Active eye [employer]EC Active Other fatigue Active Viral conjunctivitis, unspecified Active Abnormal weight gain 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 [employer] 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 Other fatigue Active Viral conjunctivitis, unspecified Active Abnormal weight gain Active [employer] 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 Other fatigue Active Viral conjunctivitis, unspecified Active Abnormal weight gain Active [employer] Active Other fatigue Active Viral conjunctivitis, unspecified Active Abnormal weight gain 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 [employer] Active Other fatigue Active Viral conjunctivitis, unspecified Active Abnormal weight gain Active Other jail (current) drug therapy Active [employer] Active Other fatigue Active Viral conjunctivitis, unspecified Active Abnormal weight gain 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 [employer] 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 Other fatigue Active Viral conjunctivitis, unspecified Active Abnormal weight gain Active Nonscarring hair loss, unspecified Active Nonscarring hair loss, unspecified Active Nonscarring hair loss, unspecified Active Nonscarring hair loss, unspecified Active Nonscarring hair loss, unspecified Active Nonscarring hair loss, unspecified Active Nonscarring hair loss, unspecified Active Alopecia Not Otherwise Specified Active Androgenic alopecia, unspecified Active Alopecia Not Otherwise Specified Active Androgenic alopecia, unspecified Active Alopecia Not Otherwise Specified Active Androgenic alopecia, unspecified Active Alopecia Not Otherwise Specified Active Androgenic alopecia, unspecified Active Alopecia Not Otherwise Specified Active Androgenic alopecia, unspecified Active Alopecia Not Otherwise Specified Active Androgenic alopecia, unspecified Active Alopecia Not Otherwise Specified Active Androgenic alopecia, unspecified Active Lateral Epicondylitis Active Lateral Epicondylitis Active Lateral Epicondylitis Active Lateral Epicondylitis Active Lateral Epicondylitis Active Lateral Epicondylitis Active Lateral Epicondylitis Active Cervical Disc Degeneration Active Sprains and Strains of Shoulder and Active Upper Arm Not Otherwise Specified Cervical Disc Degeneration Active Sprains and Strains of Shoulder and Active Upper Arm Not Otherwise Specified Cervical Disc Degeneration Active Sprains and Strains of Shoulder and Active Upper Arm Not Otherwise Specified Cervical Disc Degeneration Active Sprains and Strains of Shoulder and Active Upper Arm Not Otherwise Specified Cervical Disc Degeneration Active Sprains and Strains of Shoulder and Active Upper Arm Not Otherwise Specified Cervical Disc Degeneration Active Sprains and Strains of Shoulder and Active Upper Arm Not Otherwise Specified Cervical Disc Degeneration Active Sprains and Strains of Shoulder and Active Upper Arm Not Otherwise Specified Rotator Cuff Sprains and Strains Active Sprains and Strains of Neck Active Rotator Cuff Sprains and Strains Active Sprains and Strains of Neck Active Rotator Cuff Sprains and Strains Active Sprains and Strains of Neck Active Rotator Cuff Sprains and Strains Active Sprains and Strains of Neck Active Rotator Cuff Sprains and Strains Active Sprains and Strains of Neck Active Rotator Cuff Sprains and Strains Active Sprains and Strains of Neck Active Rotator Cuff Sprains and Strains Active Sprains and Strains of Neck Active Dehydration Active Acute Sinusitis Not Otherwise Specified Active Chronic Rhinitis Active Dehydration Active Acute Sinusitis Not Otherwise Specified Active Chronic Rhinitis Active Dehydration Active Acute Sinusitis Not Otherwise Specified Active Chronic Rhinitis Active Dehydration Active Acute Sinusitis Not Otherwise Specified Active Chronic Rhinitis Active Dehydration Active Acute Sinusitis Not Otherwise Specified Active Chronic Rhinitis Active Dehydration Active Acute Sinusitis Not Otherwise Specified Active Chronic Rhinitis Active Dehydration Active Acute Sinusitis Not Otherwise Specified Active Chronic Rhinitis Active Encounters Start End Encounter Admission Attending Care Care Encounter Date/Time Date/Time Type Type Clinicians Facility Department ID 2020-06-01 2020-06-01 [facility] [id number] 00:00:00 00:00:00 Jolei, Immediate Immediate & [id number] [employer]: [facility], [place] [address], Ph. 2019-08-10 2019-08-10 Outpatient MIAH Schumacher [id number] 00:00:00 00:00:00 [facility] 2019-08-06 2019-08-06 Outpatient MIAH Schumacher [id number] 00:00:00 00:00:00 Medical 2019-07-27 2019-07-27 Outpatient MIAH Schumacher [id number] 00:00:00 00:00:00 [facility] 2019-07-12 2019-07-12 Outpatient MIAH Schumacher [id number] 00:00:00 00:00:00 [facility] 2019-06-01 2019-06-01 Outpatient MIAH Schumacher [id number] 00:00:00 00:00:00 [facility] 2019-05-21 2019-05-21 Outpatient MIAH Schumacher [id number] 00:00:00 00:00:00 [facility] 2019-05-01 2019-05-01 Outpatient MIAH Schumacher [id number] 00:00:00 00:00:00 [facility] 2017-08-10 2017-08-10 Outpatient MIAH Schumacher [id number] 00:00:00 00:00:00 Medical 2017-03-16 2017-03-16 Outpatient MIAH Schumacher [id number] 00:00:00 00:00:00 [facility] 2017-03-08 2017-03-08 Outpatient MIAH Schumacher [id number] 00:00:00 00:00:00 [facility] 2016-12-06 2016-12-06 Outpatient MIAH Schumacher [id number] 00:00:00 00:00:00 Medical 2016-07-14 2016-07-14 Outpatient MIAH Schumacher [id number] 00:00:00 00:00:00 [facility] 2016-07-02 2016-07-02 Outpatient MIAH Schumacher [id number] 00:00:00 00:00:00 Medical 2016-06-07 2016-06-07 Outpatient MIAH Schumacher [id number] 00:00:00 00:00:00 [facility] Social History Smoking Status Start Date Stop Date Never Smoker Vital Signs Vital Name Observation Time Observation Value Comments Body Weight 2020-06-01 00:00:00 200 [lb_av] Height 2020-06-01 00:00:00 66 [in_i] BMI (Body Mass Index) 2020-06-01 00:00:00 32.3 kg/m2 Hospital Discharge Instructions 1. Risk of exposure to communicable disease rapid SARS CoV 2 Ag, QL IA, respiratory specimen pulse oximetry (PROC) Discussion Note Virtual telemedicine time spent with patient was less than 10 mins, with >50% of that time spent counseling the patient, discussing the risk and benefits of jasmin tment and family education. Follow up with PCP in 1 week or sooner for new/worsening symptoms. All pt. questions and concerns were addressed and answered. Pt. verbalized understanding and agreement of treatment plan. This was an Urgent Care Visit. Quality measures managed by PCP. Patient educational madsen ndouts: No information available.
--- NOTE | 2020-06-18 16:29 | RADIOLOGY REPORT (SQ) ---
EXAM DESCRIPTION: CHEST 2 VIEWS IMAGES COMPLETED DATE/TIME: 06/18/2020 4:13 pm REASON FOR STUDY: PERSISTENT COUGH COMPARISON: 06/11/2020. EXAM PARAMETERS: NUMBER OF VIEWS: two views TECHNIQUE: Digital Frontal and Lateral radiographic views of the chest acquired. RADIATION DOSE: NA LIMITATIONS: none FINDINGS: LUNGS AND PLEURA: No opacities, masses or pneumothorax. No pleural effusion. MEDIASTINUM AND HILAR STRUCTURES: No masses or contour abnormalities. HEART AND VASCULAR STRUCTURES: Heart normal size. No evidence for failure. BONES: No acute findings. HARDWARE: None in the chest. OTHER: No other significant finding. IMPRESSION: NO ACUTE RADIOGRAPHIC FINDING IN THE CHEST. TECHNICAL DOCUMENTATION: JOB ID: [id number] 2010 [employer]- All Rights Reserved Reading location - IP/workstation name: [email or web address]
== END ==
LOC: RAD 15:49
PROVIDERS: ATTEND Obstetrics & Gynecology
DX: R05 Cough (principal); Z86.16 Personal history of COVID-19
CPT/HCPCS: 71046